=== PATIENT | female | born 1990 | race Caucasian/White ===

== ENCOUNTER 2019-12-07 12:03 | Outpatient (REF) | payer OTHER, SELFPAY | END 2019-12-07 12:04 | disposition home or self-care (01) | LOC: HO.LAB 12:03 | PROVIDERS: PCP Internal Medicine; Visit Provider Internal Medicine | DX: Z20.828 Contact with and (suspected) exposure to other viral communicable diseases (principal) | CPT/HCPCS: 87635 ==

== ENCOUNTER 2020-09-10 08:40 | Outpatient (REF) | payer OTHER, SELFPAY ==
[2020-09-10 09:22] LABS: MANUAL DIFF FLAG NO
[2020-09-10 09:23] LABS: Basophils Percent Auto 0.4 % (0-2); Eosinophils Percent Auto 0.8 % (0-4); Hemoglobin 14.2 g/dl (12.0-16.0); Imm Gran Abs Auto 0.01 X10*3/uL (0.00-0.03); Imm Gran Pct Auto 0.2 % (0.0-0.4); Lymphocytes Absolute Auto 1.9 X10*3/uL (1.2-4.9); Lymphocytes Percent Auto 37.1 % (20-40); Mean Corpuscular Hemoglobin 29.5 pg (27.0-33.0); Mean Corpuscular Volume 89.2 fL (80-98); Mean Platelet Volume 12.3 fL (9.4-12.3); Monocytes Absolute Auto 0.3 X10*3/uL (0.1-1.2); Monocytes Percent Auto 5.6 % (2-11); Neutrophils Absolute Auto 2.9 X10*3/uL (2.0-8.3); Neutrophils Percent Auto 55.9 % (45-73); Platelet Count 193 X10*3/uL (160-400); Red Blood Count 4.82 X10*6/uL (4.20-5.50); Red Cell Distribution Width 13.2 % (11.0-16.0); White Blood Count 5.2 X10*3/uL (4.8-10.8)
[2020-09-10 09:43] LABS: Glucose Urine UA NEG (NEG); Leukocyte Esterase Urine NEG (NEG); Nitrite Urine NEG (NEG); Urine Blood NEG (NEG); Urine Ketones NEG (NEG); Urine Protein NEG (NEG-TRACE)
[2020-09-10 10:01] LABS: Appearance Urine CLEAR; Color Urine YELLOW
[2020-09-10 10:08] LABS: Alanine Aminotransferase 13 U/L (0-31); Albumin Level 4.4 g/dL (3.5-5.0); Alkaline Phosphatase 58 U/L (39-117); Anion Gap 12 (12-20); Aspartate Amino Transferase 19 U/L (5-31); Bilirubin Total 0.8 mg/dL (0.0-1.0); Blood Urea Nitrogen 8 mg/dL (9-16); Calcium 9.6 mg/dL (8.4-10.2); Carbon Dioxide 25 mmol/L (22-29); Chloride 104 mmol/L (96-108); Cholesterol 132 mg/dL; Estimated Glomerular Filt Rate > 60; Glucose Random 94 mg/dL (60-115); HDL Cholesterol 44 mg/dL; LDL Cholesterol Calculated 75 mg/dl; Potassium 4.3 mmol/L (3.3-5.1); Sodium 137 mmol/L (135-145); Total Protein 7.5 g/dL (6.5-8.0); Triglycerides 66 mg/dL
[2020-09-10 10:30] LABS: Free T4 (Free Thyroxine) 1.11 ng/dL (0.71-1.85); Thyroid Stimulating Hormone 1.58 uIU/mL (0.32-4.0); Vitamin D 25-OH Total 45.3 ng/mL (>30)
[2020-09-10 10:38] LABS: Folate 18.8 ng/mL (> or = 4.0); Vitamin B12 573 pg/mL (200-900)
[2020-09-10 11:24] LABS: Bacteria Urine TRACE /LPF; Calcium Phosphate Crystals Ur TRACE /LPF; RBC Urine 0 /HPF (0); Squamous Epithelial Cell Urine TRACE /LPF; WBC Urine 0-2 /HPF (0-4)
[2020-09-10 11:25] LABS: Amorphous Sediment Urine 2+ /LPF
== END 2020-09-10 08:41 | disposition home or self-care (01) ==
LOC: HO.LAB 08:40
PROVIDERS: PCP Internal Medicine; Visit Provider Internal Medicine
DX: L65.9 Nonscarring hair loss, unspecified (principal); R53.83 Other fatigue; E78.00 Pure hypercholesterolemia, unspecified
CPT/HCPCS: 36415; 80053; 80061; 81001; 82306; 82607; 82746; 84439; 84443; 85025

== ENCOUNTER 2022-07-14 12:40 | Emergency (ER) | payer OTHER, SELFPAY ==
[2022-07-14 12:59] VITALS: BP 158/81; PULSE 110; RESP 20; TEMP 36.9; O2SAT 99; BMI 25.1
--- NOTE | 2022-07-14 13:00 | ED.GENADULT ---
HPI - General Adult General Chief complaint: Dizziness Stated complaint: light headed, tingling all over face, high bp, diz Time Seen by Provider: 07/14/22 16:02 Source: patient Mode of arrival: ambulatory History of Present Illness HPI narrative: 31 year female, comes in with lightheadedness associated with tingling all across her forehead as well as located in the left jaw, she denies any dental pain or recent fever, chills, ear ringing but states that she has had your ringing for the past year. Patient denies any other instances of similar symptoms, denies recent travel or leg swelling. Related Data Home Medications Medication Instructions Recorded Confirmed hydroxyzine HCl 10 mg tablet 10 mg PO TID PRN 03/21/20 03/30/22 Previous Rx's Medication Instructions Recorded albuterol sulfate 90 mcg/actuation 2 puff inhalation QID PRN 03/21/20 aerosol inhaler (ProAir HFA) shortness of breath or wheezing #8.5 grams cyclobenzaprine 5 mg tablet 5 mg PO BEDTIME PRN muscle spasm 03/30/22 #7 tabs Allergies Allergy/AdvReac Type Severity Reaction Status Date / Time No Known Allergies Allergy Verified 03/30/22 09:19 Review of Systems Review of Systems: Pertinent positives and negatives as stated in HPI [facility] Past Medical History Source: nursing notes reviewed Medical History Overweight (BMI 25.0-29.9) Vitamin D deficiency Surgical History No pertinent past surgical history Family History Family History Father No problems noted. Mother Myocardial infarct Brother Autism Maternal Aunt Thyroid cancer Paternal Uncle Colon cancer Social History Social History Housing: House Alcohol intake: current Patient Tobacco Use Status: Never used Tobacco Advance Directives: No Advance Directives Information Provided: No service: No Current occupational status: employed Cognitive needs: No Hearing needs: No Vision needs: No Physical Exam ED Vital Signs: Vital Signs - 24 hr 07/14/22 12:59 07/14/22 16:00 07/14/22 16:41 Temperature 98.4 F 98.2 F Pulse Rate 110 H 105 H 92 Respiratory Rate 20 18 Blood Pressure 158/81 H 137/86 128/71 Pulse Oximetry 99 98 Oxygen Delivery Method Room Air Room Air 07/14/22 16:42 07/14/22 16:43 07/14/22 18:33 Temperature 98.2 F Pulse Rate 99 112 H 92 Respiratory Rate 16 Blood Pressure 122/79 140/72 H 123/76 Pulse Oximetry 98 Oxygen Delivery Method Room Air BMI result Body Mass Index 25.1 VITAL SIGNS: Reviewed. GENERAL: Well developed, well nourished, in no acute distress. HEAD: Normocephalic/atraumatic EYES: PERRLA, EOMI EARS: Ext canals without abnormality, TMs non-bulging and non-erythematous NOSE: Nares patent bilateral OROPHARYNX: no oral lesions noted, posterior pharynx clear NECK: Supple, no adenopathy LUNGS: Normal breath sounds. No adventitious sounds or accessory muscle use. SpO2<98> CARDIOVASCULAR: Regular rate and rhythm without noted murmurs ABDOMEN: Soft, non-tender, non-distended with bowel sounds. MUSCULOSKELETAL: No tenderness, deformities, or effusions noted on gross inspection. EXTREMITIES: No cyanosis, clubbing or edema. SKIN: Inspection of the skin reveals no rashes NEUROLOGIC: Alert and oriented x 4. Strength and sensation to light touch were grossly intact x 4. Course Course Course Narrative: This is an RME: Additional HPI, ROS, PE not included below will be deferred to primary provider. This is a 13-wgym[age]sgr-female, with a hx of anxiety, presenting to the emergency department with complaints of lightheadedness, facial numbness, dizziness, and unsteadiness x 1 week. States that the symptoms are intermittent. Has been under stress with wedding planning. No chest pain or shortness of breath. No neuro deficits on examination. Has been without her control over the last week. VSS. Stable to return back to the waiting room until treatment room becomes available. Plan: Labs and EKG ordered Medical Decision Making Medical Decision Making MDM Narrative: 31-year-old female with history and clinical presentation suggestive of initial signs and symptoms of vasovagal, she is noted to be significantly tachycardic both eye on vital sign measurement as well as EKG. She otherwise appears well, nonfocal and on review of all investigations thus far there is no evidence of infection, anemia, electrolyte abnormalities. Will proceed with orthostatics and assessment of urinalysis/U preg and will obtain D-dimer. Orthostatics were positive, D-dimer is negative as well as the urinalysis and hcg is negative. Patient has drank 2 pitchers of water since being here in the emergency room. She is feeling much better and on performance of the orthostatics she denied feeling dizzy on the standing position. She is otherwise hemodynamically stable and will be discharged home with presumptive mild dehydration. Differential Diagnosis Please see the discussion above Lab Data Please see the discussion above 07/14/22 13:32 07/14/22 13:32 Labs: Lab Results 07/14/22 07/14/22 07/14/22 Range/Units 13:32 13:32 16:26 WBC 8.6 (4.8-10.8) X10*3/uL RBC 4.63 (4.20-5.50) X10*6/uL Hgb 13.8 (12.0-16.0) g/dl Hct 41.3 (37.0-47.0) % MCV 89.2 (80.0-98.0) fL MCH 29.8 (27.0-33.0) pg MCHC 33.4 (31.0-35.0) g/dl RDW 12.9 (11.0-16.0) % Plt Count 215 (160-400) X10*3/uL MPV 11.8 (9.4-12.3) fL Immature Gran % (Auto) 0.2 (0.0-0.4) % Neut % (Auto) 73.0 (45-73) % Lymph % (Auto) 21.5 (20-40) % Allen % (Auto) 4.8 (2-11) % Eos % (Auto) 0.2 (0-4) % Baso % (Auto) 0.3 (0-2) % Lymph # (Auto) 1.9 (1.2-4.9) X10*3/uL Allen # (Auto) 0.4 (0.1-1.2) X10*3/uL Eos # (Auto) 0.0 (0.0-0.4) X10*3/uL Baso # (Auto) 0.0 (0.0-0.2) X10*3/uL Abs Immat Gran (auto) 0.02 (0.00-0.03) X10*3/uL Absolute Neuts (auto) 6.3 (2.0-8.3) x10*3/uL Absolute Nucleated RBC 0.000 (0.0-0.012) X10*3/uL Nucleated RBC % (auto) 0.0 (0.0-0.2) /100WBC D-Dimer High Sensitivty NG/ML Sodium 141 (135-145) mmol/L Potassium 3.5 (3.3-5.1) mmol/L Chloride 108 (96-108) mmol/L Carbon Dioxide 25 (22-29) mmol/L Anion Gap 12 (12-20) BUN 8 L (9-16) mg/dL Creatinine 0.69 (0.5-1.4) mg/dL Estim Creat Clear Calc 117.0 Estimated GFR > 60 Random Glucose 109 (60-115) mg/dL Calcium 9.9 (8.4-10.2) mg/dL Magnesium 2.0 (1.6-2.6) mg/dL Total Bilirubin 0.5 (0.0-1.0) mg/dL Direct Bilirubin 0.1 (0.0-0.5) mg/dL AST 17 (5-31) U/L ALT 14 (0-31) U/L Alkaline Phosphatase 51 (39-117) U/L Total Protein 7.4 (6.5-8.0) g/dL Albumin 4.1 (3.5-5.0) g/dL Lipase 23 (8-78) U/L Beta HCG, Quant < 2 mIU/mL Urine Color Yellow Urine Appearance Clear Urine pH 8.0 (5.0-9.0) Ur Specific Thurmond 1.010 (1.005-1.025) Urine Protein Negative (Neg-Trace) mg/dL Urine Glucose (UA) Negative (Negative) mg/dL Urine Ketones Negative (Negative) mg/dL Urine Blood Negative (Negative) Urine Nitrite Negative (Negative) Ur Leukocyte Esterase Negative (Negative) 07/14/22 Range/Units 16:50 WBC (4.8-10.8) X10*3/uL RBC (4.20-5.50) X10*6/uL Hgb (12.0-16.0) g/dl Hct (37.0-47.0) % MCV (80.0-98.0) fL MCH (27.0-33.0) pg MCHC (31.0-35.0) g/dl RDW (11.0-16.0) % Plt Count (160-400) X10*3/uL MPV (9.4-12.3) fL Immature Gran % (Auto) (0.0-0.4) % Neut % (Auto) (45-73) % Lymph % (Auto) (20-40) % Allen % (Auto) (2-11) % Eos % (Auto) (0-4) % Baso % (Auto) (0-2) % Lymph # (Auto) (1.2-4.9) X10*3/uL Allen # (Auto) (0.1-1.2) X10*3/uL Eos # (Auto) (0.0-0.4) X10*3/uL Baso # (Auto) (0.0-0.2) X10*3/uL Abs Immat Gran (auto) (0.00-0.03) X10*3/uL Absolute Neuts (auto) (2.0-8.3) x10*3/uL Absolute Nucleated RBC (0.0-0.012) X10*3/uL Nucleated RBC % (auto) (0.0-0.2) /100WBC D-Dimer High Sensitivty < 150 NG/ML Sodium (135-145) mmol/L Potassium (3.3-5.1) mmol/L Chloride (96-108) mmol/L Carbon Dioxide (22-29) mmol/L Anion Gap (12-20) BUN (9-16) mg/dL Creatinine (0.5-1.4) mg/dL Estim Creat Clear Calc Estimated GFR Random Glucose (60-115) mg/dL Calcium (8.4-10.2) mg/dL Magnesium (1.6-2.6) mg/dL Total Bilirubin (0.0-1.0) mg/dL Direct Bilirubin (0.0-0.5) mg/dL AST (5-31) U/L ALT (0-31) U/L Alkaline Phosphatase (39-117) U/L Total Protein (6.5-8.0) g/dL Albumin (3.5-5.0) g/dL Lipase (8-78) U/L Beta HCG, Quant mIU/mL Urine Color Urine Appearance Urine pH (5.0-9.0) Ur Specific Thurmond (1.005-1.025) Urine Protein (Neg-Trace) mg/dL Urine Glucose (UA) (Negative) mg/dL Urine Ketones (Negative) mg/dL Urine Blood (Negative) Urine Nitrite (Negative) Ur Leukocyte Esterase (Negative) Independent Interpretation I performed an independent interpretation of an: EKG Interpretation: Normal sinus rhythm, HR-97, no STEMI, WA/QRS/QTC is within normal limits. External Record Review External record reviewed: Prior outpatient labs Discharge Plan Discharge Clinical Impression: Lightheaded, Mild dehydration Patient Disposition: Home, Self-Care Instructions: Lightheadedness (ED), Dehydration (ED) Additional Instructions: 1. Resume all home medications as prescribed. 2. Please follow-up with your primary care provider next 1-2 days for re-evaluation further outpatient management. Return to the ER for any worsening symptoms. Prescriptions: No Action hydroxyzine HCl 10 mg tablet 10 mg PO TID PRN albuterol sulfate [ProAir HFA] 90 mcg/actuation HFA aerosol inhaler 2 puff inhalation QID PRN (Reason: shortness of breath or wheezing) Qty: 8.5 0RF cyclobenzaprine 5 mg tablet 5 mg PO BEDTIME PRN (Reason: muscle spasm) Qty: 7 0RF Referrals: Po,Kacy Siu MD [Primary Care Provider] -
--- NOTE | 2022-07-14 13:11 | ECG_ITS ---
Test Reason : DIZZINESS Blood Pressure : / mmHG Vent. Rate : 097 BPM Atrial Rate : 097 BPM P-R Int : 140 ms QRS Dur : 088 ms QT Int : 344 ms P-R-T Axes : 068 064 042 degrees QTc Int : 436 ms Normal sinus rhythm Possible Left atrial enlargement Borderline ECG When compared with ECG of 12-NOV-2019 20:39, Nonspecific T wave abnormality now evident in Inferior leads Referred By: Deepa Mijares Electronically Signed By:LALA WARREN MD
[2022-07-14 13:36] LABS: MANUAL DIFF FLAG NO
[2022-07-14 13:38] LABS: Basophils Percent Auto 0.3 % (0-2); Eosinophils Percent Auto 0.2 % (0-4); Hematocrit 41.3 % (37.0-47.0); Hemoglobin 13.8 g/dl (12.0-16.0); Imm Gran Abs Auto 0.02 X10*3/uL (0.00-0.03); Imm Gran Pct Auto 0.2 % (0.0-0.4); Lymphocytes Absolute Auto 1.9 X10*3/uL (1.2-4.9); Lymphocytes Percent Auto 21.5 % (20-40); Mean Corpuscular HGB Conc 33.4 g/dl (31.0-35.0); Mean Corpuscular Hemoglobin 29.8 pg (27.0-33.0); Mean Corpuscular Volume 89.2 fL (80.0-98.0); Mean Platelet Volume 11.8 fL (9.4-12.3); Monocytes Absolute Auto 0.4 X10*3/uL (0.1-1.2); Monocytes Percent Auto 4.8 % (2-11); Neutrophils Absolute Auto 6.3 x10*3/uL (2.0-8.3); Platelet Count 215 X10*3/uL (160-400); Red Blood Count 4.63 X10*6/uL (4.20-5.50); Red Cell Distribution Width 12.9 % (11.0-16.0); White Blood Count 8.6 X10*3/uL (4.8-10.8)
[2022-07-14 13:55] LABS: Alanine Aminotransferase 14 U/L (0-31); Albumin Level 4.1 g/dL (3.5-5.0); Alkaline Phosphatase 51 U/L (39-117); Anion Gap 12 (12-20); Aspartate Amino Transferase 17 U/L (5-31); Bilirubin Direct 0.1 mg/dL (0.0-0.5); Bilirubin Total 0.5 mg/dL (0.0-1.0); Blood Urea Nitrogen 8 mg/dL (9-16); Calcium 9.9 mg/dL (8.4-10.2); Carbon Dioxide 25 mmol/L (22-29); Chloride 108 mmol/L (96-108); Estimated Glomerular Filt Rate > 60; Glucose Random 109 mg/dL (60-115); Lipase 23 U/L (8-78); Potassium 3.5 mmol/L (3.3-5.1); Sodium 141 mmol/L (135-145); Total Protein 7.4 g/dL (6.5-8.0)
[2022-07-14 15:46] LABS: HCG Quantitative < 2 mIU/mL
[2022-07-14 16:00] VITALS: BP 137/86; PULSE 105; RESP 18; TEMP 36.8; O2SAT 98
[2022-07-14 16:41] VITALS: BP 128/71; PULSE 92
[2022-07-14 16:42] VITALS: BP 122/79; PULSE 99
[2022-07-14 16:43] VITALS: BP 140/72; PULSE 112
[2022-07-14 16:47] LABS: Appearance Urine Clear; Color Urine Yellow; Glucose Urine UA Negative (Negative); Leukocyte Esterase Urine Negative (Negative); Nitrite Urine Negative (Negative); Urine Blood Negative (Negative); Urine Ketones Negative (Negative); Urine Protein Negative (Neg-Trace)
--- NOTE | 2022-07-14 16:51 | MHC.EDTECH ---
pt orthodontics vitals taken and d dimer drawn and sent to lab .
[2022-07-14 17:43] LABS: D Dimer High Sensitivity < 150 NG/ML
[2022-07-14 18:33] VITALS: BP 123/76; PULSE 92; RESP 16; TEMP 36.8; O2SAT 98
--- NOTE | 2022-07-14 18:35 | MHC.EDTECH ---
1800 ROUNDING DONE ,VITALS SIGN TAKEN ,PT DRANK 2 PITCHER WATER .
== END 2022-07-14 19:05 | disposition home or self-care (01) ==
PROVIDERS: Physician Assistant Medical; Emergency Provider Student in an Organized Health Care Education/Training Program; PCP Internal Medicine
DX: R42 Dizziness and giddiness (principal); E86.0 Dehydration; R20.0 Anesthesia of skin; Z79.899 Other long term (current) drug therapy
CPT/HCPCS: 36415; 80048; 80076; 81003; 83690; 83735; 84702; 85025; 85379; 93005; 99283; 99284

== ENCOUNTER 2022-11-23 11:51 | Outpatient (REF) | payer OTHER, SELFPAY | END 2022-11-23 11:52 | disposition home or self-care (01) | LOC: HO.LAB 11:51 | PROVIDERS: PCP Internal Medicine; Visit Provider Internal Medicine | DX: R30.0 Dysuria (principal); R10.9 Unspecified abdominal pain | CPT/HCPCS: 81003 ==

== ENCOUNTER 2023-02-10 11:00 | Outpatient (REF) | payer OTHER, SELFPAY ==
[2023-02-10 12:37] LABS: Appearance Urine Cloudy; Color Urine Yellow; Glucose Urine UA Negative (Negative); Leukocyte Esterase Urine Moderate (2+) (Negative); Nitrite Urine Negative (Negative); Specific Gravity - Urine 1.025 (1.005-1.025); UMIC TRIGGER UACC YES; Urine Blood Large (3+) (Negative); Urine Ketones Negative (Negative); Urine Protein 100 (2+) mg/dL (Neg-Trace)
[2023-02-10 12:40] LABS: Bacteria Urine 4+ (None Seen); Hyaline Casts Urine 0-2 /LPF (0-2); RBC Urine >20 /HPF (0-2); UACC Culture Trigger YES; WBC Urine >50 /HPF (0-5)
== END 2023-02-10 11:01 | disposition home or self-care (01) ==
LOC: HO.LAB 11:00
PROVIDERS: PCP Internal Medicine; Visit Provider Internal Medicine
DX: R39.9 Unspecified symptoms and signs involving the genitourinary system (principal)
CPT/HCPCS: 81001; 87086; 87088; 87186

== ENCOUNTER 2023-04-07 09:26 | Outpatient (AMB) | payer OTHER, SELFPAY ==
[2023-04-07 09:28] VITALS: BP 110/72; PULSE 89; O2SAT 100; BMI 27.5
--- NOTE | 2023-04-07 09:28 | MHC.PC.OV ---
Vital Signs 04/07/23 09:28 Height 5 ft 8 in Weight 181 lb BMI 27.5 BP 110/72 Blood Pressure Location Lt brachial Position Sitting Pulse 89 Pulse Source Pulse Oximeter Pulse Oximetry (%) 100 Oxygen Delivery Method Room Air Intake Visit Reasons: Right hand/elbow/shoulder Intake Note: pt states right shoulder, hand and elbow pain X1 week Technical Lead Required: No Allergies No Known Allergies Allergy (Verified 04/07/23 09:30) Tobacco use date assessed: 04/07/23 HPI Right hand/elbow/shoulder HPI Details 32-year-old overweight female with a history of generalized anxiety disorder coming in for an acute problem. Noted UTI in January. 2 weeks R hand numbness PFSH Medical History Overweight (BMI 25.0-29.9) Vitamin D deficiency Surgical History No pertinent past surgical history Family History (Updated 07/28/22 @ 10:26 by Merissa Crandall [facility]) Father No problems noted. Mother Myocardial infarct Brother Autism Maternal Aunt Thyroid cancer Paternal Uncle Colon cancer Social History (Updated 07/28/22 @ 10:57 by Kacy Hansen MD) Housing: House Alcohol intake: current Patient Tobacco Use Status: Never used Tobacco e-Cigarette/Vaping Use: Never Used Second Hand Smoke Exposure: No service: No Current occupational status: employed Cognitive needs: Yes Hearing needs: No Vision needs: No Questionnaire Thrive Questionnaire Date Thrive assessed: 04/07/23 AUDIT C Alcohol Use Questionnaire (AUDIT-C) 1. How often do you have a drink containing alcohol?: Monthly or less 2. How many drinks containing alcohol do you have on a typical day when you are drinking?: 1 or 2 3. How often do you have six or more drinks on one occasion?: Never Total Score: 1 Score Reviewed/Action Taken: No ODIN-7 AMB Questionnaire ODIN-7 Date ODIN - 7 assessed: 04/07/23 Source: Developed by Drs. Kashif Rao, Mandy Akins, Tyron Ludwig and colleagues, with an educational jevon from [employer]. Physical exam (Primary Care) Vital Signs: Last Vital Signs Pulse 89 04/07/23 09:28 BP 110/72 04/07/23 09:28 Pulse Ox 100 04/07/23 09:28 Oxygen Delivery Method Room Air 04/07/23 09:28 BMI result Body Mass Index 27.5 Tobacco/Smoking Status: Tobacco use Status Tobacco use date assessed 04/07/23 04/07/23 09:30 Patient Tobacco Use Status Never used Tobacco 04/07/23 09:30 e-Cigarette/Vaping Use Never Used 04/07/23 09:30 Thrive Assessment: Date of Thrive Assessment Date Thrive assessed 04/07/23 04/07/23 09:30 Const General: alert; No acute distress Eyes Conjunctivae: conjunctivae normal Resp Auscultation: clear to auscultation bilaterally Cardio Rate: regular rate Rhythm: regular rhythm GI Inspection: Yes normal to inspection Neuro Other: Right hand numbness pulses normal range of motion normal no swelling no redness. Assessment and Plan Assessment & Plan (1) Numbness of right hand: Code(s): R20.0 - Anesthesia of skin Plan: Wrist brace given to wear at nighttime every night and discussed about the nerve patterns of the hand and the most common problem of carpal tunnel syndrome. Advised to monitor in the next month or so if it has not getting any better to call and we will institute nerve conduction test and an EMG. Coding Level of Care Code Est Pt Level 3 (65130) Diagnoses Numbness of right hand R20.0
== END 2023-04-07 10:09 | disposition home or self-care (01) ==
PROVIDERS: PCP Internal Medicine; Visit Provider Internal Medicine
DX: R20.0 Anesthesia of skin (principal)
CPT/HCPCS: 99213

== ENCOUNTER 2023-06-09 14:59 | Outpatient (AMB) | payer OTHER, SELFPAY ==
[2023-06-09 15:02] VITALS: BP 110/86; PULSE 119; O2SAT 98; BMI 27.8
--- NOTE | 2023-06-09 15:02 | A.OFFPC_ITS ---
Vital Signs 06/09/23 15:02 Height 5 ft 8 in Weight 183 lb BMI 27.8 BP 110/86 Blood Pressure Location Lt brachial Position Sitting Pulse 119 H Pulse Source Pulse Oximeter Pulse Oximetry (%) 98 Oxygen Delivery Method Room Air Intake Visit Reasons: Arm Numbness Radiation Oncology Manager Required: No Allergies No Known Allergies Allergy (Verified 06/09/23 15:03) Tobacco use date assessed: 06/09/23 HPI Arm Numbness HPI Details Noted with tachycardia and patient just drank coffee 32-year-old overweight female with a history of generalized anxiety disorder coming in for follow-up. March last seen having right hand numbness. Patient also complains of leg cramps both sides has been well hydrated. Will work this up. Patient has been wearing the wrist splints but notes still having numbness of the fingers. [facility] Medical History Overweight (BMI 25.0-29.9) Vitamin D deficiency Surgical History No pertinent past surgical history Family History (Updated 07/28/22 @ 10:26 by Merissa Crandall CMA) Father No problems noted. Mother Myocardial infarct Brother Autism Maternal Aunt Thyroid cancer Paternal Uncle Colon cancer Social History (Updated 07/28/22 @ 10:57 by Kacy Hansen MD) Housing: House Alcohol intake: current Patient Tobacco Use Status: Never used Tobacco e-Cigarette/Vaping Use: Never Used Second Hand Smoke Exposure: No service: No Current occupational status: employed Cognitive needs: Yes Hearing needs: No Vision needs: No Questionnaire Thrive Questionnaire Date Thrive assessed: 04/07/23 AUDIT C Alcohol Use Questionnaire (AUDIT-C) 1. How often do you have a drink containing alcohol?: Monthly or less 2. How many drinks containing alcohol do you have on a typical day when you are drinking?: 1 or 2 3. How often do you have six or more drinks on one occasion?: Never Total Score: 1 Score Reviewed/Action Taken: No ODIN-7 AMB Questionnaire ODIN-7 Date ODIN - 7 assessed: 06/09/23 Feeling nervous, anxious, or on edge: 0 = Not at all Not being able to stop or control worryin = Not at all Worrying too much about different things: 0 = Not at all Trouble relaxin = Not at all Being so restless that it is hard to sit still: 0 = Not at all Becoming easily annoyed or irritable: 0 = Not at all Feeling afraid as if something awful might happen: 0 = Not at all Total ODIN-7 score (0-4 normal; 5-9 mild; 10-14 moderate; 15-21 severe): 0 Source: Developed by Drs. Kashif Rao, Mandy Akins, Tyron Ludwig and colleagues, with an educational jevon from [employer]. ODIN-7 Assessment Billing ODIN-7 Assessment Tool: ODIN-7 Assessment 94793 Physical exam (Primary Care) Vital Signs: Last Vital Signs Pulse 119 H 06/09/23 15:02 BP 110/86 06/09/23 15:02 Pulse Ox 98 06/09/23 15:02 Oxygen Delivery Method Room Air 06/09/23 15:02 BMI result Body Mass Index 27.8 Tobacco/Smoking Status: Tobacco use Status Tobacco use date assessed 06/09/23 06/09/23 15:04 Patient Tobacco Use Status Never used Tobacco 06/09/23 15:04 e-Cigarette/Vaping Use Never Used 06/09/23 15:04 Thrive Assessment: Date of Thrive Assessment Date Thrive assessed 04/07/23 06/09/23 15:04 Const General: alert; No acute distress Eyes Conjunctivae: conjunctivae normal Resp Auscultation: clear to auscultation bilaterally Cardio Rate: regular rate Rhythm: regular rhythm GI Inspection: Yes normal to inspection Extrem General: Yes normal to inspection and No edema Assessment and Plan Assessment & Plan (1) Numbness of right hand: Code(s): R20.0 - Anesthesia of skin Plan: Will request for nerve conduction test (2) Overweight (BMI 25.0-29.9): Code(s): E66.3 - Overweight Plan: Diet and exercise (3) Exercise induced bronchospasm: Code(s): J45.990 - Exercise induced bronchospasm Plan: Patient on ProAir to use as needed (4) Leg cramps: Code(s): R25.2 - Cramp and spasm Plan: Patient is advised to work this up with blood work Orders: Orders NE electromyogram (EMG) Today R20.0 - Anesthesia of skin NE nerve conduction velocity Today R20.0 - Anesthesia of skin Comprehensive Met. Panel Today R25.2 - Cramp and spasm Free T4 (Free Thyroxine) Today R25.2 - Cramp and spasm Magnesium Today R25.2 - Cramp and spasm Phosphorus Today R25.2 - Cramp and spasm Complete Blood Count Auto Diff Today R25.2 - Cramp and spasm Thyroid Stimulating Hormone Today R25.2 - Cramp and spasm UA CC w/rflx Micro + Cult Today R25.2 - Cramp and spasm, R30.0 - Dysuria Ferritin Today R25.2 - Cramp and spasm Coding Level of Care Code Est Pt Level 4 (85463) Diagnoses Numbness of right hand R20.0 Overweight (BMI 25.0-29.9) E66.3 Exercise induced bronchospasm J45.990 Leg cramps R25.2 Additional Codes ODIN-7 Assessment Billing - ODIN-7 Assessment Tool: ODIN-7 Assessment [id number] ([id number])
== END 2023-06-09 15:44 | disposition home or self-care (01) ==
PROVIDERS: PCP Internal Medicine; Visit Provider Internal Medicine
DX: R20.0 Anesthesia of skin (principal); E66.3 Overweight; J45.990 Exercise induced bronchospasm; R25.2 Cramp and spasm
CPT/HCPCS: 99214

== ENCOUNTER 2023-06-10 08:16 | Outpatient (REF) | payer OTHER, SELFPAY ==
[2023-06-10 08:41] LABS: MANUAL DIFF FLAG NO
[2023-06-10 08:57] LABS: Basophils Percent Auto 0.5 % (0-2); Eosinophils Absolute Auto 0.1 X10*3/uL (0.0-0.4); Hematocrit 38.9 % (37.0-47.0); Hemoglobin 13.2 g/dl (12.0-16.0); Imm Gran Abs Auto 0.01 X10*3/uL (0.00-0.03); Imm Gran Pct Auto 0.2 % (0.0-0.4); Lymphocytes Absolute Auto 2.2 X10*3/uL (1.2-4.9); Lymphocytes Percent Auto 38.3 % (20-40); Mean Corpuscular HGB Conc 33.9 g/dl (31.0-35.0); Mean Corpuscular Hemoglobin 29.7 pg (27.0-33.0); Mean Corpuscular Volume 87.4 fL (80.0-98.0); Mean Platelet Volume 11.7 fL (9.4-12.3); Monocytes Absolute Auto 0.3 X10*3/uL (0.1-1.2); Monocytes Percent Auto 5.5 % (2-11); Neutrophils Absolute Auto 3.1 x10*3/uL (2.0-8.3); Neutrophils Percent Auto 54.5 % (45-73); Platelet Count 211 X10*3/uL (160-400); Red Blood Count 4.45 X10*6/uL (4.20-5.50); Red Cell Distribution Width 13.3 % (11.0-16.0); White Blood Count 5.8 X10*3/uL (4.8-10.8)
[2023-06-10 09:31] LABS: Alanine Aminotransferase 13 U/L (0-31); Alkaline Phosphatase 46 U/L (39-117); Anion Gap 13 (12-20); Aspartate Amino Transferase 15 U/L (5-31); Bilirubin Total 0.3 mg/dL (0.0-1.0); Blood Urea Nitrogen 9 mg/dL (9-16); Calcium 9.1 mg/dL (8.4-10.2); Carbon Dioxide 22 mmol/L (22-29); Chloride 107 mmol/L (96-108); Estimated Glomerular Filt Rate > 60; Glucose Random 118 mg/dL (60-115); Sodium 138 mmol/L (135-145); Total Protein 7.5 g/dL (6.5-8.0)
[2023-06-10 09:49] LABS: Ferritin 40 ng/mL (10-122); Free T4 (Free Thyroxine) 0.88 ng/dL (0.71-1.85); Thyroid Stimulating Hormone 2.04 uIU/mL (0.32-4.0)
[2023-06-10 10:20] LABS: Appearance Urine Clear; Color Urine Yellow; Glucose Urine UA Negative (Negative); Leukocyte Esterase Urine Trace (Negative); Nitrite Urine Negative (Negative); UMIC TRIGGER UACC YES; Urine Blood Negative (Negative); Urine Ketones Negative (Negative); Urine Protein Negative (Neg-Trace)
[2023-06-10 10:23] LABS: Bacteria Urine None Seen (None Seen); Hyaline Casts Urine 0-2 /LPF (0-2); RBC Urine 0-2 /HPF (0-2); WBC Urine 0-5 /HPF (0-5)
== END 2023-06-10 08:17 | disposition home or self-care (01) ==
LOC: HO.LAB 08:16
PROVIDERS: PCP Internal Medicine; Visit Provider Internal Medicine
DX: R25.2 Cramp and spasm (principal)
CPT/HCPCS: 36415; 80053; 81001; 81003; 82728; 83735; 84100; 84439; 84443; 85025

== ENCOUNTER 2023-06-28 09:44 | Outpatient (REF) | payer OTHER, SELFPAY ==
--- NOTE | 2023-06-28 09:47 | EMG_ITS ---
Right median and ulnar motor and sensory studies were performed. Right radial and median and lateral antecubital brachial sensory studies were performed and paraspinal muscles were tested with a needle. IMPRESSION: 1. [id number]-mo-[id number] right median neuropathy across carpal tunnel. 2. Right Vladislav Chad anastomosis, a normal variant. MD JUAN M Foreman/MAXINE / [id number]
== END 2023-06-28 09:45 | disposition home or self-care (01) ==
LOC: HO.NEURO 09:44
PROVIDERS: PCP Internal Medicine; Visit Provider Internal Medicine
DX: R20.0 Anesthesia of skin (principal)
CPT/HCPCS: 95886; 95910

== ENCOUNTER 2023-08-10 11:13 | Outpatient (AMB) | payer OTHER, SELFPAY ==
[2023-08-10 11:25] VITALS: BP 124/68; PULSE 92; O2SAT 99; BMI 28.9
--- NOTE | 2023-08-10 11:25 | A.OFFPC_ITS ---
Vital Signs 08/10/23 11:25 Height 5 ft 8 in Weight 190 lb BMI 28.9 BP 124/68 Blood Pressure Location Lt brachial Position Sitting Pulse 92 Pulse Source Pulse Oximeter Pulse Oximetry (%) 99 Oxygen Delivery Method Room Air Intake Visit Reasons: pe Allergies No Known Allergies Allergy (Verified 08/10/23 11:26) Medication List - Last Reconciled 08/10/23 by Kacy Hansen MD albuterol sulfate 90 mcg/actuation (ProAir HFA) 2 puffs inhalation QID PRN cholecalciferol (vitamin D3) 125 mcg PO DAILY drospirenone-ethinyl estradiol 3-0.03 mg (Alpa) 1 tab PO DAILY magnesium 250 mg PO DAILY multivitamin 1 tab PO DAILY Tobacco use date assessed: 06/09/23 Dental Screening Dental Screen Date: 08/10/23 Did you have a dental visit in the last 12 months?: Yes Did you have a dental problem in the last 6 months where you did not have access to dental care?: No Was dental information given to patient?: Patient has dentist HPI pe HPI Details 32-year-old overweight female with exerc ise-induced bronchospasm and has complained of right hand numbness coming in for physical exam last seen in 05/2023 patient comes in for physical exam. Patient had a nerve conduction test showing right median mild to moderate carpal tunnel syndrome. [facility] Medical History Overweight (BMI 25.0-29.9) Vitamin D deficiency Surgical History No pertinent past surgical history Family History (Updated 07/28/22 @ 10:26 by Merissa Crandall [facility]) Father No problems noted. Mother Myocardial infarct Brother Autism Maternal Aunt Thyroid cancer Paternal Uncle Colon cancer Social History (Updated 08/10/23 @ 12:09 by Kacy Hansen MD) Housing: House Alcohol intake: current Comment: once a week 1 drink Patient Tobacco Use Status: Never used Tobacco e-Cigarette/Vaping Use: Never Used Second Hand Smoke Exposure: No service: No Current occupational status: employed Cognitive needs: Yes Hearing needs: No Vision needs: No Questionnaire PHQ-9 Over the last 2 weeks, how often have you been bothered by any of the following problems? 1. Little interest or pleasure in doing things: not at all 2. Feeling down, depressed, or hopeless: several days 3. Trouble falling or staying asleep, or sleeping too much: not at all 4. Feeling tired or having little energy: more than half the days 5. Poor appetite or overeating: not at all 6. Feeling bad about yourself - or that you are a failure or have let yourself or your family down: not at all 7. Trouble concentrating on things, such as reading the newspaper or watching television: more than half the days 8. Moving or speaking so slowly that other people could have noticed. Or the opposite - being so fidgety or restless that you have been moving around a lot more than usual: not at all 9. Thoughts that you would be better off or of hurting yourself in some way: not at all Total score: 5 Depression Screening Interpretation: Negative Depression Screening Done: Yes 54266 - PHQ-9 Billing: Yes Source: Developed by Drs. Kashif Rao, Mandy Akins, Tyron Ludwig and colleagues, with an educational jevon from [email or web address]. Thrive Questionnaire Date Thrive assessed: 04/07/23 AUDIT C Alcohol Use Questionnaire (AUDIT-C) 1. How often do you have a drink containing alcohol?: Monthly or less 2. How many drinks containing alcohol do you have on a typical day when you are drinking?: 1 or 2 3. How often do you have six or more drinks on one occasion?: Never Total Score: 1 Score Reviewed/Action Taken: No ODIN-7 AMB Questionnaire ODIN-7 Date ODIN - 7 assessed: 08/10/23 Feeling nervous, anxious, or on edge: 1 = Several days Not being able to stop or control worryin = Not at all Worrying too much about different things: 1 = Several days Trouble relaxin = Not at all Being so restless that it is hard to sit still: 0 = Not at all Becoming easily annoyed or irritable: 0 = Not at all Feeling afraid as if something awful might happen: 1 = Several days Total ODIN-7 score (0-4 normal; 5-9 mild; 10-14 moderate; 15-21 severe): 3 Source: Developed by Mandy NewsomeW. Tashi, Tyron Ludwig and colleagues, with an educational jevon from [email or web address]. ODIN-7 Assessment Billing ODIN-7 Assessment Tool: ODIN-7 Assessment 63852 Review of Systems Const Denies poor appetite and Denies weakness Eyes Denies no additional complaints ENT Reports Normal hearing present, Denies dizziness, Denies nasal congestion, Denies tinnitus and Denies sore throat Card Denies chest pain, Denies syncope, Denies rapid heart rate and Denies dyspnea Resp Denies cough and Denies dyspnea GI Denies change in stool character, Reports constipation, Denies diarrhea, Denies nausea and Denies vomiting Denies urinary frequency, Denies difficulty voiding and Denies dysuria Neuro Reports Normal hearing present, Denies confusion, Denies dizziness, Denies syncope and Denies weakness Psych Denies confusion Physical exam (Primary Care) Vital Signs: Last Vital Signs Pulse 92 08/10/23 11:25 BP 124/68 08/10/23 11:25 Pulse Ox 99 08/10/23 11:25 Oxygen Delivery Method Room Air 08/10/23 11:25 BMI result Body Mass Index 28.9 Tobacco/Smoking Status: Tobacco use Status Tobacco use date assessed 06/09/23 08/10/23 11:32 Patient Tobacco Use Status Never used Tobacco 08/10/23 11:32 e-Cigarette/Vaping Use Never Used 08/10/23 11:32 PHQ-9: PHQ-9 Score PHQ-9: Total score 5 08/10/23 11:37 Depression Screening Interpretation: Negative Thrive Assessment: Date of Thrive Assessment Date Thrive assessed 04/07/23 08/10/23 11:32 Const General: No confusion Orientation/consciousness: No confusion Neuro General: No confusion Cranial nerves: Yes Normal hearing present Assessment and Plan Assessment & Plan (1) Annual physical exam: Code(s): Z00.00 - Encounter for general adult medical examination without abnormal findings Plan: Patient is advised to eat healthy, keep well hydrated, keep active and have adequate sleep. (2) Overweight (BMI 25.0-29.9): Code(s): E66.3 - Overweight Plan: Diet and exercise (3) Exercise induced bronchospasm: Code(s): J45.990 - Exercise induced bronchospasm Plan: Continue with albuterol as needed (4) Right carpal tunnel syndrome: Comment: June [id number] right median neuropathy across carpal tunnel. 2. Right Vladislav Chad anastomosis, a normal variant. Code(s): G56.01 - Carpal tunnel syndrome, right upper limb Plan: Discussed about management. Conservative management presently and discussed about further management if persisting. (5) Impaired fasting glucose: Code(s): R73.01 - Impaired fasting glucose Plan: Decrease the amount of carbohydrate intake, pasta, bread, rice and potatoes are all sugar and that is aside from all the sweet stuff, remember that fruits are good but they are Sweet also. Orders: Orders Hemoglobin A1c 3 Months R73.01 - Impaired fasting glucose Comprehensive Met. Panel 3 Months R73.01 - Impaired fasting glucose Lipid Panel 3 Months E78.00 - Pure hypercholesterolemia, unspecified, R73.01 - Impaired fasting glucose Coding Level of Care Code Est Pt Prev Care 18-39y(19005) Diagnoses Annual physical exam Z00.00 Overweight (BMI 25.0-29.9) E66.3 Exercise induced bronchospasm J45.990 Right carpal tunnel syndrome G56.01 Impaired fasting glucose R73.01 Additional Codes ODIN-7 Assessment Billing - ODIN-7 Assessment Tool: ODIN-7 Assessment [id number] ([id number])
== END 2023-08-10 12:24 | disposition home or self-care (01) ==
PROVIDERS: PCP Internal Medicine; Visit Provider Internal Medicine
DX: Z00.00 Encounter for general adult medical examination without abnormal findings (principal); E66.3 Overweight; J45.990 Exercise induced bronchospasm; G56.01 Carpal tunnel syndrome, right upper limb; R73.01 Impaired fasting glucose
CPT/HCPCS: 99395

== ENCOUNTER 2023-12-23 09:25 | Outpatient (REF) | payer OTHER, SELFPAY ==
[2023-12-23 10:50] LABS: Appearance Urine Clear; Color Urine Yellow; Glucose Urine UA Negative (Negative); Leukocyte Esterase Urine Trace (Negative); Nitrite Urine Negative (Negative); PH 7.5 (5.0-9.0); Specific Gravity - Urine 1.015 (1.005-1.025); UMIC TRIGGER UACC YES; Urine Blood Negative (Negative); Urine Ketones Negative (Negative); Urine Protein Negative (Neg-Trace)
[2023-12-23 10:55] LABS: Bacteria Urine None Seen (None Seen); Hyaline Casts Urine 0-2 /LPF (0-2); RBC Urine 0-2 /HPF (0-2); WBC Urine 0-5 /HPF (0-5)
[2023-12-23 11:33] LABS: Estimated Average Glucose 117 mg/dL; Hemoglobin A1C 140.7666 umol/L; Hemoglobin A1c % 5.7 % (<6.0)
[2023-12-23 11:50] LABS: Alanine Aminotransferase 13 U/L (0-31); Alkaline Phosphatase 50 U/L (39-117); Anion Gap 10 (12-20); Aspartate Amino Transferase 19 U/L (5-31); Bilirubin Total 0.4 mg/dL (0.0-1.0); Blood Urea Nitrogen 10 mg/dL (9-16); Calcium 9.3 mg/dL (8.4-10.2); Carbon Dioxide 23 mmol/L (22-29); Chloride 108 mmol/L (96-108); Cholesterol 129 mg/dL (<200); Estimated Glomerular Filt Rate > 60; Glucose Random 99 mg/dL (60-115); HDL Cholesterol 52 mg/dL (>40); LDL Cholesterol Calculated 37 mg/dL (<100); Sodium 137 mmol/L (135-145); Total Protein 7.6 g/dL (6.5-8.0); Triglycerides 203 mg/dL (<150)
== END 2023-12-23 09:26 | disposition home or self-care (01) ==
LOC: HO.LAB 09:25
PROVIDERS: PCP Internal Medicine; Visit Provider Internal Medicine
DX: R73.01 Impaired fasting glucose (principal); E78.00 Pure hypercholesterolemia, unspecified
CPT/HCPCS: 36415; 80053; 80061; 81001; 83036

== ENCOUNTER 2024-05-18 09:17 | Outpatient (REF) | payer OTHER, SELFPAY ==
[2024-05-18 09:31] LABS: MANUAL DIFF FLAG NO
--- OUTSIDE RECORDS SUMMARY | 2024-05-18 10:02 | XMS_ITS | Encounter Summary ---
Author Organization [facility] Address [address] [place] [address] Care Team Providers Care Cutter Woodwind Reeds Name Role Phone Taylor Becerra MD Primary Care Prov ider Reason for Visit * Reason Comments E-prescribe Rx Request Encounter Details Date Type Department Care Team Description 10/31/2023 Refill OBGYN - [address] [address] [facility] [address] [place] [address] E-prescribe Rx Request Social History Tobacco Use Types Packs/Day Years Used Date Smoking Tobacco: Never Smokeless Tobacco: Never Alcohol Use Standard Drinks/Week Comments Yes 1 (1 standard drink = 0.6 oz pur e alcohol) Socially Alcohol Habits Answer Date Recorded How often do you have a drink containing alcohol ? Monthly or less 01/24/2019 How many drinks containing a lcohol do you have on a typical day when you are drinking? 1 or 2 12/20/2018 How often do you have six or more drinks on one occasion? Not asked Sex Assigned at Date Recorded Not on file documented as of this encounter Miscellaneous Notes * Telephone Encounter - Fam Voss - 10/31/2023 12:45 PM EDT WHEN WAS THE PATIENTS LAST ANNUAL ORGANIZATIONAL EFFECTIVENESS DIRECTOR EXAM?09/05/23 Does patient have an upcoming appointment? No (THE MEDICATION REQUESTED IS ON THE MED LIST ABOVE) Did you check the Pharmacy information above?: YES Indicate how soon the patient needs the script: BY THE END OF THE DAY Patient would like script to be: E-PRESCRIBED/FAXED TO PHARMACY Is the doctor here today?: YES Can the message wait until the doctor returns?: YES Has the patient been told that the prescription will not be filled until the end of the day? YES Payor: GORDO / Plan: PPO $0 KISHAN [id number] / Product Type: PPO [id number] documented in this encounter Plan of Treatment Not on file documented as of this encounter Visit Diagnoses Not on filedocumented in this encounter Care Teams Cutter Woodwind Reeds Relationship Specialty Start Date End Date Taylor Becerra MD [address] [place] [id number] PCP - General Internal Medicine 01/20/22 documented as of this encounter
--- OUTSIDE RECORDS SUMMARY | 2024-05-18 10:02 | XMS_ITS | Encounter Summary ---
Author Organization [facility] Address [address] [place] [address] Care Team Providers Care Safety Specialist Name Role Phone Cecelia Patel MD Primary Care Provider U reeailTaylor Elizabeth MD Primary Care Prov ider Encounter Details Date Type Department Care Team Description 12/20/2017 Orders Only Adult Medicine - [address] [address] Cecelia Patel MD Vitamin D deficiency (Primary Dx) Social History Tobacco Use Types Packs/Day Years [...] on file documented as of this encounter Plan of Treatment Scheduled Orders Name Type Priority Associated Diagnoses Orde r Schedule 25 HYDROXY INCLUDES FRACTIONS IF PERFORMED Lab Routine Vitamin D deficiency Expected: 02/21/2018, Expires: 12/20/2018 documented as of this encounter Visit Diagnoses Diagnosis Vitamin D deficiency- Primary Unspecified vitamin D deficiency documented in this encounter Care Teams Safety Specialist Relationship Specialty Start Date End Date Cecelia Patel MD PCP - General Internal Medicine 09/13/1601/19 Taylor Becerra MD [address] [place] [phone] PCP - General Internal Medicine 01/20/22 documented as of this encounter
--- OUTSIDE RECORDS SUMMARY | 2024-05-18 10:02 | XMS_ITS | Clinical Summary ---
Author Organization [facility] Address [address] [place] [address] Care Team Providers Care Supply Chain Technician Name Role Phone Taylor Becerra MD Primary Care Prov ider Allergies No known active allergies Medications Medication Sig Dispensed Refills Start Date End Date Status hydrOXYzine (ATARAX) 10 MG tablet Take 1 Tab by mouth 3 times daily as needed for Itching for up to 10 days. 30 tablet 0 01/14/2020 Active spironolactone (ALDACTONE) 50 MG tablet Take 1 Tablet by mouth daily. 0 Active drospirenone-ethinyl estradiol (DENNIS) 3-0.03 MG per tablet Take 1 Tablet by mouth daily. 84 Tablet 3 09/05/2023 Active Active Problems Problem Noted Date Vitamin D deficiency 11/12/2016 Acne 11/12/2016 Anxiety 11/12/2016 Immunizations Name Administration Dates Next Due Tdap 02/11/2012 Family History Medical History Relation Name Comments Autism Brother Lanny Arthritis Father Hypertension, Glaucoma, Anemia Mother Hypertension Paternal Grandmother diabete s Relation Name Status Comments Brother Lanny Alive Father Mother Paternal Grandmother Social History Tobacco Use Types Packs/Day Years [...] Assigned at Date Recorded Not on file Last Filed Vital Signs Vital Sign Reading Time Taken Comments Blood Pressure 117/84 09/05/2023 3:03 PM EDT Pulse 86 09/05/2023 3:03 PM EDT Temperature - - Respiratory Rate 16 09/05/2023 3:03 PM EDT Oxygen Saturation - - Inhaled Oxygen Concentration - - Weight 84.6 kg (186 lb 8 oz) 09/05/2023 3:03 PM EDT Height 160 cm (5' 3 ) 09/05/2023 3:03 PM EDT Body Mass Index 33.04 09/05/2023 3:03 PM EDT Plan of Treatment Health Maintenance Due Date Last Done Comments Covid-19 Vaccine (#1) 06/07/1989 DTAP/TDAP/TD (2 - Td or Tdap) 02/10/2022 02/11/2012 CHOLESTEROL SCREENING 12/19/2022 12/19/2017 BASELINE HEALTH EXAM 18-39 12/21/202312/20, 12/20/2018, 12/19/2017, Additional history exists BMI CHECK/ADVISE 02/15/2024 09/05/2023, , 06/17/2022, Additional history exists INFLUENZA (Season Ended) 2024 019 (Refused), 12/19/2017 (Refused) CERVICAL CANCER SCREENING 06/17/2025 06/17/2022, 12/2018 PNEUMOCOCCAL VACCINE FOR HIG H RISK PATIENTS (#1) 2053 Care Teams Supply Chain Technician Relationship Specialty Start Date End Date Taylor Becerra MD [address] [place] [phone] PCP - General Internal Medicine 01/20/22
--- OUTSIDE RECORDS SUMMARY | 2024-05-18 10:03 | XMS_ITS | Encounter Summary ---
Author Organization [facility] Address [address] [place] [address] Care Team Providers Care Wrister Name Role Phone Cecelia Patel MD Primary Care Provider U [facility] Taylor Becerra MD Primary Care Prov ider Encounter Details Date Type Department Care Team Description 02/09/2018 Orders Only Medical Records [address] [place] [id number] Abstract, Provider Social History Tobacco Use Types Packs/Day Years [...] as of this encounter Plan of Treatment Not on file documented as of this encounter Procedures Procedure Name Priority Date/Time Associated Diagnosis Comments OUTSIDE HOLTER MONITOR Routine 12/30/2017 documented in this encounter Results * OUTSIDE HOLTER MONITOR (12/30/2017) Provider Abstract CARDIOLOGY documented in this encounter Visit Diagnoses Not on filedocumented in this encounter Care Teams Wrister Relationship Specialty Start Date End Date Cecelia Patel MD PCP - General Internal Medicine 09/13/1601/19 Taylor Becerra MD [address] [place] [phone] PCP - General Internal Medicine 01/20/22 documented as of this encounter
--- OUTSIDE RECORDS SUMMARY | 2024-05-18 10:03 | XMS_ITS | Patient Health Record ---
Author Organization [facility] Address [address] [place] [address] Care Team Providers Care C Python Developer Name Role Phone Kacy Hansne Primary Care Provider Silvio White Unavailable [phone] Allergies Allergen (clinical drug ingredient) Drug/Non Drug Allergy documented on EMR Reaction Allergy Type Onset Date Status Latex Latex mild rash Allergy Active Reason For Referral No Information Medications Medication SIG (Take, Route, Fr equency, Duration) Notes Start Date End Date Status Alpa 3-0.03 MG 1 tablet Orally Once a day for 28 day(s) Active Alpa 3-0.03 MG 1 tablet Orally Once a day Active Social History Tobacco Use: Social History Observation Description Date Details (start date - stop date) Never Smoker NA - NA Tobacco Use/Smoking Question Answer Notes Are you a: nonsmoker Alcohol Screen Question Answer Notes Did you have a drink contain ing alcohol in the past year? Yes How often did you have a dri nk containing alcohol in the past year? Monthly or less (1 point) Points 1 Interpretation Negative Tobacco use other than smoking: Question Answer Notes Are you an other tobacco user? No Plan Of Treatment No Information Insurance Providers Payer Name Payer Address Payer Phone Subscriber Number Group Number Insured Name Patient Relationship to Insured Coverage Start Date Coverage End Date [employer] [address] JAREK Garcia [phone] [id number] Alexus Pena Self - patient is the insured Medical (General) History Medical History History ICD Code Anxiety Hospitalization History Reason Date(Month/Year) C- dehydration 06/2022
[2024-05-18 10:30] LABS: Basophils Percent Auto 0.5 % (0-2); Eosinophils Absolute Auto 0.1 X10*3/uL (0.0-0.4); Eosinophils Percent Auto 0.9 % (0-4); Hematocrit 41.7 % (37.0-47.0); Hemoglobin 13.7 g/dl (12.0-16.0); Imm Gran Abs Auto 0.01 X10*3/uL (0.00-0.03); Imm Gran Pct Auto 0.2 % (0.0-0.4); Lymphocytes Absolute Auto 2.2 X10*3/uL (1.2-4.9); Lymphocytes Percent Auto 37.9 % (20-40); Mean Corpuscular HGB Conc 32.9 g/dl (31.0-35.0); Mean Corpuscular Hemoglobin 28.5 pg (27.0-33.0); Mean Corpuscular Volume 86.7 fL (80.0-98.0); Mean Platelet Volume 11.8 fL (9.4-12.3); Monocytes Absolute Auto 0.3 X10*3/uL (0.1-1.2); Monocytes Percent Auto 5.2 % (2-11); Neutrophils Absolute Auto 3.2 x10*3/uL (2.0-8.3); Neutrophils Percent Auto 55.3 % (45-73); Platelet Count 225 X10*3/uL (160-400); Red Blood Count 4.81 X10*6/uL (4.20-5.50); Red Cell Distribution Width 13.9 % (11.0-16.0); White Blood Count 5.7 X10*3/uL (4.8-10.8)
[2024-05-18 10:35] LABS: Appearance Urine Cloudy; Color Urine Dark Yellow; Glucose Urine UA Negative (Negative); Leukocyte Esterase Urine Negative (Negative); Nitrite Urine Negative (Negative); Specific Gravity - Urine >= 1.030 (1.005-1.025); UMIC TRIGGER UACC YES; Urine Blood Large (3+) (Negative); Urine Ketones Negative (Negative); Urine Protein Trace mg/dL (Neg-Trace)
[2024-05-18 10:41] LABS: Bacteria Urine 1+ (None Seen); Hyaline Casts Urine 0-2 /LPF (0-2); RBC Urine >20 /HPF (0-2); WBC Urine 0-5 /HPF (0-5)
[2024-05-18 11:20] LABS: Estimated Average Glucose 123 mg/dL; Hemoglobin A1C 147.4377 umol/L; Hemoglobin A1c % 5.9 % (<6.0)
[2024-05-18 12:19] LABS: Alanine Aminotransferase 25 U/L (0-31); Albumin Level 3.9 g/dL (3.5-5.0); Alkaline Phosphatase 65 U/L (39-117); Anion Gap 9 (12-20); Aspartate Amino Transferase 32 U/L (5-31); Bilirubin Total 0.3 mg/dL (0.0-1.0); Blood Urea Nitrogen 10 mg/dL (9-16); Carbon Dioxide 23 mmol/L (22-29); Chloride 112 mmol/L (96-108); Cholesterol 117 mg/dL (<200); Estimated Glomerular Filt Rate > 60; Glucose Random 88 mg/dL (60-115); HDL Cholesterol 46 mg/dL (>40); LDL Cholesterol Calculated 35 mg/dL (<100); Potassium 4.1 mmol/L (3.3-5.1); Sodium 140 mmol/L (135-145); Total Protein 7.3 g/dL (6.5-8.0); Triglycerides 181 mg/dL (<150)
[2024-05-18 12:23] LABS: Folate 12.4 ng/mL (> or = 4.0); Vitamin B12 585 pg/mL (200-900)
[2024-05-18 12:49] LABS: Free T4 (Free Thyroxine) 0.96 ng/dL (0.71-1.85); Thyroid Stimulating Hormone 1.51 uIU/mL (0.32-4.0); Vitamin D 25-OH Total 40.2 ng/mL (>30)
== END 2024-05-18 09:18 | disposition home or self-care (01) ==
LOC: HO.LAB 09:17
PROVIDERS: PCP Internal Medicine; Visit Provider Internal Medicine
DX: E78.00 Pure hypercholesterolemia, unspecified (principal); R73.01 Impaired fasting glucose
CPT/HCPCS: 36415; 80053; 80061; 81001; 82306; 82607; 82746; 83036; 84439; 84443; 85025

== ENCOUNTER 2024-05-25 09:27 | Outpatient (AMB) | payer OTHER, SELFPAY ==
[2024-05-25 09:32] VITALS: BP 114/78; PULSE 84; O2SAT 98; BMI 29.6
--- NOTE | 2024-05-25 09:32 | A.OFFPC_ITS ---
Vital Signs 05/25/24 09:32 Height 5 ft 8 in Weight 195 lb BMI 29.6 BP 114/78 Blood Pressure Location Lt brachial Position Sitting Pulse 84 Pulse Source Pulse Oximeter Pulse Oximetry (%) 98 Oxygen Delivery Method Room Air Intake Visit Reasons: Lab Results Allergies No Known Allergies Allergy (Verified 05/25/24 09:32) Tobacco use date assessed: 05/25/24 Dental Screening Dental Screen Date: 05/25/24 Did you have a dental visit in the last 12 months?: Yes Did you have a dental problem in the last 6 months where you did not have access to dental care?: No Was dental information given to patient?: Patient has dentist [facility] Medical History Overweight (BMI 25.0-29.9) Vitamin D deficiency Surgical History No pertinent past surgical history Family History (Updated 07/28/22 @ 10:26 by Merissa Crandall [facility]) Father No problems noted. Mother Myocardial infarct Brother Autism Maternal Aunt Thyroid cancer Paternal Uncle Colon cancer Social History (Updated 08/10/23 @ 12:09 by Kacy Hansen MD) Housing: House Alcohol intake: current Comment: once a week 1 drink Patient Tobacco Use Status: Never used Tobacco Tobacco use type: Cigarette e-Cigarette/Vaping Use: Never Used Second Hand Smoke Exposure: No service: No Current occupational status: employed Cognitive needs: Yes Hearing needs: No Vision needs: No Questionnaire PHQ-9 Over the last 2 weeks, how often have you been bothered by any of the following problems? 1. Little interest or pleasure in doing things: not at all 2. Feeling down, depressed, or hopeless: several days 3. Trouble falling or staying asleep, or sleeping too much: not at all 4. Feeling tired or having little energy: more than half the days 5. Poor appetite or overeating: not at all 6. Feeling bad about yourself - or that you are a failure or have let yourself or your family down: not at all 7. Trouble concentrating on things, such as reading the newspaper or watching television: more than half the days 8. Moving or speaking so slowly that other people could have noticed. Or the opposite - being so fidgety or restless that you have been moving around a lot more than usual: not at all 9. Thoughts that you would be better off or of hurting yourself in some way: not at all Total score: 5 Depression Screening Interpretation: Negative Depression Screening Done: Yes 96078 - PHQ-9 Billing: Yes Source: Developed by Drs. Kashif Rao, Mandy Akins, Tyron Ludwig and colleagues, with an educational jevon from [employer]. Thrive Questionnaire Date Thrive assessed: 05/25/24 I am a: Patient What is your living situation today?: I have a steady place to live Within the past 12 months, did the food you bought not last and you didn't have the money to get more?: Never true Within the past 12 months, did you worry whether your food would run out before you got money to buy more?: Never true Do you have trouble paying for medicines?: No Do you have trouble getting transportation to medical appointments?: No Do you have trouble paying your heating and electricity bill?: No Do you have trouble taking care of your child, family member or friend?: No Do you have trouble with day-to-day activities such as bathing, preparing meals, shopping, managing finances, etc.?: No Are you currently unemployed and looking for a job?: No Are you interested in more education?: No Currently or been in a relationship where the following occur: No concerns reported THRIVE Score: 0 AUDIT C Alcohol Use Questionnaire (AUDIT-C) 2. How many drinks containing alcohol do you have on a typical day when you are drinking?: 1 or 2 3. How often do you have six or more drinks on one occasion?: Never Total Score: 0 ODIN-7 AMB Questionnaire ODIN-7 Date ODIN - 7 assessed: 05/25/24 Feeling nervous, anxious, or on edge: 1 = Several days Not being able to stop or control worryin = Not at all Worrying too much about different things: 1 = Several days Trouble relaxin = Not at all Being so restless that it is hard to sit still: 0 = Not at all Becoming easily annoyed or irritable: 0 = Not at all Feeling afraid as if something awful might happen: 1 = Several days Total ODIN-7 score (0-4 normal; 5-9 mild; 10-14 moderate; 15-21 severe): 3 Source: Developed by Drs. Kashif Rao, Mandy Akins, Tyron Ludwig and colleagues, with an educational ejvon from [employer]. ODIN-7 Assessment Billing ODIN-7 Assessment Tool: ODIN-7 Assessment 93306 Physical exam (Primary Care) Vital Signs: Last Vital Signs Pulse 84 05/25/24 09:32 BP 114/78 05/25/24 09:32 Pulse Ox 98 05/25/24 09:32 Oxygen Delivery Method Room Air 05/25/24 09:32 BMI result Body Mass Index 29.6 Tobacco/Smoking Status: Tobacco use Status Tobacco use date assessed 05/25/24 05/25/24 09:34 Patient Tobacco Use Status Never used Tobacco 05/25/24 09:34 Tobacco use type Cigarette 05/25/24 09:34 e-Cigarette/Vaping Use Never Used 05/25/24 09:34 PHQ-9: PHQ-9 Score PHQ-9: Total score 5 05/25/24 10:11 Depression Screening Interpretation: Negative Thrive Assessment: Date of Thrive Assessment Date Thrive assessed 05/25/24 05/25/24 09:35 Currently or been in a relationship where the following occur: No concerns reported Const General: alert; No acute distress Eyes Conjunctivae: conjunctivae normal Resp Auscultation: clear to auscultation bilaterally Cardio Rate: regular rate Rhythm: regular rhythm GI Inspection: Yes normal to inspection Extrem General: Yes normal to inspection and No edema Coding Level of Care Code Est Pt Level 4 (62662) Diagnoses Impaired fasting glucose R73.01 Overweight (BMI 25.0-29.9) E66.3 Hematuria R31.9 Hypertriglyceridemia E78.1 Exercise induced bronchospasm J45.990 Additional Codes ODIN-7 Assessment Billing - ODIN-7 Assessment Tool: ODIN-7 Assessment 31091 ([id number]) PHQ-9 - 02627 - PHQ-9 Billing: Yes ([id number]) Assessment & Plan Assessment & Plan (1) Impaired fasting glucose: Code(s): R73.01 - Impaired fasting glucose Category: Medical Plan: Decrease the amount of carbohydrate intake, pasta, bread, rice and potatoes are all sugar and that is aside from all the sweet stuff, remember that fruits are good but they are Sweet also. (2) Overweight (BMI 25.0-29.9): Code(s): E66.3 - Overweight Category: Medical Plan: Diet and exercise (3) Hematuria: Code(s): R31.9 - Hematuria, unspecified Category: Medical (4) Hypertriglyceridemia: Code(s): E78.1 - Pure hyperglyceridemia Category: Medical Plan: Avoid fried foods, chicken skin, eggs, butter margarine, pastries and meat. Be it pork or beef they have a lot of cholesterol LDL goal of less than 130 and triglyceride of less than 150 (5) Exercise induced bronchospasm: Code(s): J45.990 - Exercise induced bronchospasm Category: Medical Plan: Continue the albuterol inhaler as needed Plan History of Present Illness The patient is a 33-year-old female presenting with a primary concern of elevated triglycerides and hematuria observed during recent laboratory evaluations. She has a background of generalized anxiety disorder and active airway disease, currently managed with an albuterol inhaler as needed. The laboratory studies identified an elevated hemoglobin A1c of 5.9%, suggesting potential glucose metabolism disturbance, though fasting blood sugars have not been elevated. The triglyceride levels showed a reduction from 203 mg/dL to 181 mg/dL over time, despite lifestyle changes aimed at improving dietary habits and increasing physical activity. The patient's dietary intake includes an emphasis on healthier rice options and wheat pasta; however, she retains a preference for carbohydrate-rich foods. Regular physical activity comprises mainly cardiovascular exercises done three to four times weekly. The presence of hematuria in her urinalysis coincides with her menstrual period, which the patient believes affected the results. Despite lifestyle modifications, the patient has been unable to achieve desired weight loss, expressing concern in relation to her triglyceride and sugar levels, influenced partly by family dietary patterns and historical habits. Health Maintenance - Continued encouragement of diet and exercise changes to reduce triglycerides and improve metabolic health. - Monitoring of glucose metabolism given the increased hemoglobin A1c levels. - Regular cardiovascular exercise three to four times per week. - Discussion of dietary changes including reduced carbohydrate intake and mindful consumption of sweets. Social History - Engages in regular cardiovascular activity, exercising three to four times per week. - Efforts to modify diet with healthier rice options and wheat pasta, albeit continuing carbohydrate-rich foods. - Limited consumption of fast food; preferences for baked or steamed foods. - Family influence noted in dietary patterns and glucose metabolism considerations. Review of Systems - Respiratory: Reports use of albuterol inhaler as needed. - Endocrine: Reports regular exercise; increased hemoglobin A1c observed. - Genitourinary: Reports hematuria during menstruation. - Metabolic: Reports dietary changes; concerns about weight and triglycerides. - Psychological: Reports history of generalized anxiety disorder. Physical Exam Results - Labs: Hemoglobin A1c elevated at 5.9%. Triglycerides assessed at 181 mg/dL. Caitlyn blood work indicating normal blood count, electrolytes, and renal function. Urinalysis with hematuria. Plan Management of the patient's hypertriglyceridemia involves continued emphasis on dietary modifications and enhanced exercise routines to lower levels below 150 mg/dL. Observing glucose metabolism with hemoglobin A1c within the borderline range, next steps involve monitoring changes with lifestyle interventions, given the family history and current lifestyle adaptations. The patient's anxiety disorder remains addressed with existing medication usage. Reassurance is provided regarding hematuria associated with menstruation, with further medical follow-up scheduled in three months along with appropriate laboratory retesting to examine improvements in triglyceride and glucose measures. Patient was informed and verbally consented to the use of an ambient scribe for clinic note documentation during this visit. Discussion Notes During our discussion, I emphasized the importance of lifestyle modifications for managing the patient's metabolic concerns, particularly focusing on carbohydrate reduction and physical activity. We explored strategies for dietary changes and exercise routines to address the patient's elevated triglyceride levels. For glucose management, the patient acknowledged the need to monitor her sugar intake and remain vigilant given family history. The risks and benefits of altering dietary patterns and the role of regular exercise were discussed. We agreed on a follow-up in three months, during which laboratory tests will be reassessed to monitor progress, ensuring alignment with the health goals discussed during this visit. Additionally, the patient inquired about the presence of hematuria, which was explained as being related to menstruation, with reassurance provided about its non-infectious nature. Patient Instructions - Continue with lifestyle modifications focusing on healthier dietary choices and regular physical activity. - Reduce intake of carbohydrates and sweets to manage triglyceride levels. - Use an albuterol inhaler as needed for airway symptoms. - Re-evaluate dietary habits and exercise intensity to address elevated A1c. - Ensure to follow-up in three months for retesting and monitoring of glucose and triglyceride levels. - Drink plenty of water, especially before meals, to aid digestion. Orders: Orders Hemoglobin A1c 3 Months R73.01 - Impaired fasting glucose Lipid Panel 3 Months E78.00 - Pure hypercholesterolemia, unspecified, E78.1 - Pure hyperglyceridemia Comprehensive Met. Panel 3 Months R73.01 - Impaired fasting glucose
--- OUTSIDE RECORDS SUMMARY | 2024-05-25 09:51 | XMS_ITS | Clinical Summary ---
Author Organization [facility] Address [address] [place] [address] Care Team Providers Care Stereoplotter Operator Name Role Phone Taylor Becerra MD Primary [...] H RISK PATIENTS (#1) 2053 Care Teams Stereoplotter Operator Relationship Specialty Start Date End Date Taylor Becerra MD [address] [place] [id number] PCP - General Internal Medicine 01/20/22
--- OUTSIDE RECORDS SUMMARY | 2024-05-25 09:52 | XMS_ITS | Encounter Summary ---
Author Organization [facility] Address [address] [place] [address] Care Team Providers Care Book Jogger Name Role Phone Cecelia Patel MD Primary Care Provider [facility] Taylor Becerra MD Primary Care Prov ider Encounter Details Date Type Department Care Team Description 02/09/2018 Orders Only Medical Records [address] [place] [id number] Abstract, Provider Social History Tobacco Use Types [...] on filedocumented in this encounter Care Teams Book Jogger Relationship Specialty Start Date End Date Cecelia Patel MD PCP - General Internal Medicine 09/13/1601/19 Taylor Becerra MD [address] [place] [address] PCP - General Internal Medicine 01/20/22 documented as of this encounter
--- OUTSIDE RECORDS SUMMARY | 2024-05-25 09:52 | XMS_ITS | Patient Health Record ---
Author Organization [facility] Address [address] [place] [address] Care Team Providers Care Bench Worker Binding Name Role Phone Kacy Hansen Primary Care Provider Silvio White Unavailable [phone] Allergies Allergen (clinical drug ingredient) Drug/Non Drug [...] Date Coverage End Date [employer] [id number] JAREK Garcia [phone] [id number] Alexus Pena Self - patient is the insured Medical (General) History Medical History History ICD Code Anxiety Hospitalization History Reason Date(Month/Year) C- dehydration 06/2022
== END 2024-05-25 10:22 | disposition home or self-care (01) ==
LOC: HO.HMCH 09:28
PROVIDERS: PCP Internal Medicine; Visit Provider Internal Medicine
DX: R73.01 Impaired fasting glucose (principal); E66.3 Overweight; R31.9 Hematuria, unspecified; E78.1 Pure hyperglyceridemia; J45.990 Exercise induced bronchospasm

== ENCOUNTER → 2024-05-25 09:27 | Outpatient (BNVA) | payer OTHER, SELFPAY | PROVIDERS: PCP Internal Medicine; Visit Provider Internal Medicine | DX: R73.01 Impaired fasting glucose (principal); E66.3 Overweight; R31.9 Hematuria, unspecified; E78.1 Pure hyperglyceridemia; J45.990 Exercise induced bronchospasm | CPT/HCPCS: 96127 ==

== ENCOUNTER 2024-08-31 08:10 | Outpatient (REF) | payer OTHER, SELFPAY ==
--- OUTSIDE RECORDS SUMMARY | 2024-08-31 08:13 | XMS_ITS | Patient Health Record ---
Author Organization [facility] Address [address] [place] [address] Care Team Providers Care Senior Operations Analyst Name Role Phone Kacy Hansen Primary Care Provider Silvio White Unavailable [phone] Allergies Allergen (clinical drug ingredient) Drug/Non Drug Allergy documented on EMR Reaction Allergy Type Onset Date Status Latex Latex mild rash Allergy Active Reason For Referral No Information Medications Medication SIG (Take, Route, Fr equency, Duration) Notes Start Date End Date Status Alpa 3-0.03 MG 1 tablet Orally Once a day; Duration: 28 day(s) Active Alpa 3-0.03 MG 1 [...] Date Coverage End Date [employer] [address] JAREK Garcia [phone] [id number] Alexus Pena Self - patient is the insured Medical (General) History Medical History History ICD Code Anxiety Hospitalization History Reason Date(Month/Year) C- dehydration 06/2022
[2024-08-31 08:54] LABS: Hemoglobin A1C 149.1906 umol/L; Total Hemoglobin (HGBA1C) 3600.6107 umol/L
[2024-08-31 09:15] LABS: Alanine Aminotransferase 18 U/L (0-31); Albumin Level 4.0 g/dL (3.5-5.0); Alkaline Phosphatase 61 U/L (39-117); Anion Gap 13 (12-20); Aspartate Amino Transferase 29 U/L (5-31); Blood Urea Nitrogen 10 mg/dL (9-16); Calcium 8.9 mg/dL (8.4-10.2); Carbon Dioxide 20 mmol/L (22-29); Chloride 109 mmol/L (96-108); Cholesterol 117 mg/dL (<200); Estimated Glomerular Filt Rate > 60; HDL Cholesterol 56 mg/dL (>40); Potassium 3.9 mmol/L (3.3-5.1); Sodium 138 mmol/L (135-145); Total Protein 7.5 g/dL (6.5-8.0); Triglycerides 199 mg/dL (<150)
== END 2024-08-31 08:11 | disposition home or self-care (01) ==
LOC: HO.LAB 08:10
PROVIDERS: PCP Internal Medicine; Visit Provider Internal Medicine
DX: E78.1 Pure hyperglyceridemia (principal); E78.00 Pure hypercholesterolemia, unspecified; R73.01 Impaired fasting glucose
CPT/HCPCS: 36415; 80053; 80061; 83036

== ENCOUNTER 2024-09-04 10:46 | Outpatient (AMB) | payer OTHER, SELFPAY ==
--- NOTE | 2024-09-04 10:54 | A.OFFPC_ITS ---
Vital Signs 09/04/24 10:55 Height 5 ft 8 in Weight 195 lb 4 oz BMI 29.7 BP 134/78 Blood Pressure Location Lt brachial Position Sitting Pulse 88 Temp 97.1 F Temp Source Temporal Artery Scan Oxygen Delivery Method Room Air Oxygen Flow Rate 99 Intake Visit Reasons: annual exam Social Work Therapist Required: No Accompanied by: Self / Same As Patient Allergies No Known Allergies Allergy (Verified 09/04/24 11:09) Medication List - Last Reconciled 09/04/24 by Haley Loaiza PA-C albuterol sulfate 90 mcg/actuation (ProAir HFA) 2 puffs inhalation QID PRN cholecalciferol (vitamin D3) 125 mcg PO DAILY drospirenone-ethinyl estradiol 3-0.03 mg (Alpa) 1 tab PO DAILY magnesium 250 mg PO DAILY multivitamin 1 tab PO DAILY Tobacco use date assessed: 09/04/24 Dental Screening Dental Screen Date: 09/04/24 HPI annual exam HPI Details 33-year-old female with past medical his tory of anxiety, eczema, hypertriglyceridemia last seen 05/[address] Hansen coming in for annual exam. Presenting for an annual wellness visit. Reports increased anxiety due to work stress, with a positive screening result. Prefers non-pharmacological management. Prediabetes A1c at 5.9%, indicating prediabetes. Weight management is challenging, potentially linked to control. Triglycerides increased to 199 mg/dL despite lifestyle modifications. Weight and family history may contribute. Pap smear: UTD with tamale machine feeder Vaccines: Td UTD [facility] Medical History Overweight (BMI 25.0-29.9) Vitamin D deficiency Surgical History No pertinent past surgical history Family History Father No problems noted. Mother Myocardial infarct Brother Autism Maternal Aunt Thyroid cancer Paternal Uncle Colon cancer Social History Housing: House Alcohol intake: current Comment: once a week 1 drink Patient Tobacco Use Status: Never used Tobacco Tobacco use type: Cigarette e-Cigarette/Vaping Use: Never Used Second Hand Smoke Exposure: No service: No Current occupational status: employed Cognitive needs: Yes Hearing needs: No Vision needs: No Questionnaire PHQ-9 Over the last 2 weeks, how often have you been bothered by any of the following problems? 1. Little interest or pleasure in doing things: several days 2. Feeling down, depressed, or hopeless: not at all 3. Trouble falling or staying asleep, or sleeping too much: not at all 4. Feeling tired or having little energy: several days 5. Poor appetite or overeating: not at all 6. Feeling bad about yourself - or that you are a failure or have let yourself or your family down: not at all 7. Trouble concentrating on things, such as reading the newspaper or watching television: not at all 8. Moving or speaking so slowly that other people could have noticed. Or the opposite - being so fidgety or restless that you have been moving around a lot more than usual: not at all 9. Thoughts that you would be better off or of hurting yourself in some way: not at all Total score: 2 Depression Screening Interpretation: Negative Depression Screening Done: Yes 30375 - PHQ-9 Billing: Yes Source: Developed by Drs. Kashif Rao, Mandy Akins, Tyron Ludwig and colleagues, with an educational jevon from [employer]. Thrive Questionnaire Date Thrive assessed: 09/04/24 I am a: Patient What is your living situation today?: I have a steady place to live Within the past 12 months, did the food you bought not last and you didn't have the money to get more?: Never true Within the past 12 months, did you worry whether your food would run out before you got money to buy more?: Never true Do you have trouble paying for medicines?: No Do you have trouble getting transportation to medical appointments?: No Do you have trouble paying your heating and electricity bill?: No Do you have trouble taking care of your child, family member or friend?: No Do you have trouble with day-to-day activities such as bathing, preparing meals, shopping, managing finances, etc.?: No Are you currently unemployed and looking for a job?: No Are you interested in more education?: No Please select the resources that you would like help with: None Currently or been in a relationship where the following occur: No concerns reported THRIVE Score: 0 AUDIT C Alcohol Use Questionnaire (AUDIT-C) 1. How often do you have a drink containing alcohol?: Monthly or less Total Score: 1 ODIN-7 AMB Questionnaire ODIN-7 Date ODIN - 7 assessed: 09/04/24 Feeling nervous, anxious, or on edge: 1 = Several days Not being able to stop or control worryin = Several days Worrying too much about different things: 0 = Not at all Trouble relaxin = Several days Being so restless that it is hard to sit still: 1 = Several days Becoming easily annoyed or irritable: 1 = Several days Feeling afraid as if something awful might happen: 0 = Not at all Total ODIN-7 score (0-4 normal; 5-9 mild; 10-14 moderate; 15-21 severe): 5 Source: Developed by Drs. Kashif Rao, Mandy Akins, Tyron Ludwig and colleagues, with an educational jevon from [employer]. ODIN-7 Assessment Billing ODIN-7 Assessment Tool: ODIN-7 Assessment 47293 Review of Systems Const Denies body aches, Denies fatigue, Denies fever(s), Denies frequent falls, Reports headache(s) (once weekly ) and Denies weakness Eyes Reports no additional complaints and Denies change in vision ENT Denies dysphagia, Denies dizziness, Denies facial pain, Reports headache(s) (once weekly ), Denies nasal congestion and Denies odynophagia Card Denies chest pain, Denies syncope, Denies leg edema, Denies lightheadedness and Denies dyspnea Resp Denies cough and Denies dyspnea GI Denies abdominal pain, Denies constipation, Denies dysphagia, Denies dyspepsia, Denies diarrhea, Denies nausea, Denies odynophagia and Denies vomiting Denies urinary frequency, Denies dysuria, Denies urinary hesitancy and Denies urinary urgency Musc Denies back pain and Denies myalgias Skin/Breast Reports system reviewed and no additional complaints, except as documented Neuro Denies dizziness, Denies syncope, Denies frequent falls, Reports headache(s) (once weekly ) and Denies weakness Psych Reports no additional complaints Endo Denies fatigue Physical exam (Primary Care) Vital Signs: Last Vital Signs Temp 97.1 F 09/04/24 10:55 Pulse 88 09/04/24 10:55 BP 134/78 09/04/24 10:55 Oxygen Delivery Method Room Air 09/04/24 10:55 Oxygen Flow Rate 99 09/04/24 10:55 BMI result Body Mass Index 29.7 Tobacco/Smoking Status: Tobacco use Status Tobacco use date assessed 09/04/24 09/04/24 10:59 Patient Tobacco Use Status Never used Tobacco 09/04/24 10:59 Tobacco use type Cigarette 09/04/24 10:59 e-Cigarette/Vaping Use Never Used 09/04/24 10:59 PHQ-9: PHQ-9 Score PHQ-9: Total score 2 09/04/24 11:14 Depression Screening Interpretation: Negative Thrive Assessment: Date of Thrive Assessment Date Thrive assessed 09/04/24 09/04/24 10:59 Currently or been in a relationship where the following occur: No concerns reported Const General: cooperative, healthy appearing, comfortable and no acute distress Orientation/consciousness: patient oriented x3 HENMT Head: Yes normocephalic Ears: hearing grossly normal bilaterally, external ears normal, TM's normal bilaterally and EAC's normal General nose exam: Normal external nose present Face and sinus: Yes normal facial exam and Yes sinuses nontender Mouth: Normal oral and palatal mucosa present and tongue normal Throat: Yes posterior oropharynx normal Eyes General: appearance normal, both eyes and all related structures Conjunctivae: conjunctivae normal Pupils: Equal, round and reactive pupils present EOM: EOMs intact bilaterally and No Nystagmus present Neck Neck: Yes normal visual inspection, Yes full ROM and Yes no lymphadenopathy Chest Chest palpation & inspection: normal inspection of the chest Resp Effort & Inspection: normal respiratory effort Auscultation: clear to auscultation bilaterally, no crackles, no rales, no rhonchi, no wheezes and breath sounds present Cardio Rate: regular rate Rhythm: regular rhythm Peripheral pulses: radial pulses present and dorsalis pedis present GI Inspection: Yes normal to inspection and No Abdominal wall edema Palpation (GI): Soft to palpation, not firm and nontender Auscultation: normal bowel sounds Rectal Exam - Female: deferred General: Yes no CVA tenderness Back/Spine/Pelvis Back: no CVA tenderness Skin General skin exam: no rashes or lesions noted Neuro General: patient oriented x3 Cranial nerves: Yes Equal, round and reactive pupils present, Yes Midline tongue present, Yes Ability to bilaterally elevate shoulders present and No Nystagmus present Gait exam (Neuro): Normal gait present Extrem General: Yes normal to inspection, Yes full ROM, No no pedal edema and No edema Psych Speech and movement: Normal speech and movement present Affect: normal affect Insight: Good insight present (Psych) Judgement: Good judgement present (Psych) Coding Level of Care Code Est Pt Prev Care 18-39y(68195) Diagnoses Annual physical exam Z00.00 Anxiety F41.9 Hypertriglyceridemia E78.1 Impaired fasting glucose R73.01 Overweight (BMI 25.0-29.9) E66.3 Exercise induced bronchospasm J45.990 Additional Codes ODIN-7 Assessment Billing - ODIN-7 Assessment Tool: ODIN-7 Assessment 36583 ([id number]) PHQ-9 - 06948 - PHQ-9 Billing: Yes ([id number]) Assessment & Plan Assessment & Plan (1) Annual physical exam: Code(s): Z00.00 - Encounter for general adult medical examination without abnormal findings Category: Medical Plan: Patient is up-to-date on all recommended routine screenings and vaccinations for her age. She routinely follows with a ophthalmic surgical assistant and eye doctor. Blood work is up-to-date and has been reviewed with the patient today. Plan to follow up in [address] Hansen after repeat blood work has been completed. (2) Anxiety: Code(s): F41.9 - Anxiety disorder, unspecified Category: Medical Plan: Feels her symptoms are well managed at this time. Declining medication or counseling referral this time. (3) Hypertriglyceridemia: Code(s): E78.1 - Pure hyperglyceridemia Category: Medical Plan: Avoid foods that are high in cholesterol such as red meat, fried foods, eggs and baked goods. Triglyceride goal of less than 150 and LDL goal of less than 130. Referral placed for leadership program associate today (4) Impaired fasting glucose: Code(s): R73.01 - Impaired fasting glucose Category: Medical Plan: Decrease the amount of carbohydrates such as pasta, bread, rice, and potatoes and limit the amount of sweets. Although fruits are generally healthy they should be eaten in moderation as they are still high in sugar. (5) Overweight (BMI 25.0-29.9): Code(s): E66.3 - Overweight Category: Medical Plan: Healthy diet and regular exercise is encouraged. Referral placed for leadership program associate today (6) Exercise induced bronchospasm: Code(s): J45.990 - Exercise induced bronchospasm Category: Medical Plan: Continue the albuterol inhaler as needed Plan The patient will manage her anxiety through non-pharmacological means and has been referred to a leadership program associate for dietary guidance. She is advised to continue her exercise routine and make dietary changes to manage her prediabetes and hypertriglyceridemia. Magnesium is recommended for restless leg symptoms, and she should monitor for symptom patterns. Follow-up appointments will be arranged to evaluate her progress and modify the plan as needed. This note was constructed using voice recognition software. While every effort has been made to ensure accuracy and form setter helper, still areas may have been included sometimes these areas may affect the content or meeting of the given symptoms. Total time spent caring for the patient today was 30 minutes. This includes time spent before the visit reviewing the chart, time spent during the visit, and time spent after the visit and documentation. Patient was informed and verbally consented to the use of an ambient scribe for clinic note documentation during this visit. Orders: Orders Lipid Panel 3 Months E78.1 - Pure hyperglyceridemia Referrals Director [facility] Nutrition Referral E66.3 - Overweight, E78.1 - Pure hyperglyceridemia, R73.01 - Impaired fasting glucose
[2024-09-04 10:55] VITALS: BP 134/78; PULSE 88; TEMP 36.2; BMI 29.7
--- OUTSIDE RECORDS SUMMARY | 2024-09-04 12:01 | XMS_ITS | Patient Health Record ---
Author Organization [facility] Address [address] [place] [address] Care Team Providers Care Line Camera Operator Name Role Phone Kacy Hansen Primary Care Provider Silvio White Unavailable [phone] Allergies Allergen (clinical drug ingredient) Drug/Non Drug [...] Date Coverage End Date [employer] [address] JAREK Garcia [phone] [id number] Alexus Pena Self - patient is the insured Medical (General) History Medical History History ICD Code Anxiety Hospitalization History Reason Date(Month/Year) C- dehydration 06/2022
== END 2024-09-04 11:34 | disposition home or self-care (01) ==
LOC: HO.HMCH 10:47
PROVIDERS: PCP Internal Medicine
DX: Z00.00 Encounter for general adult medical examination without abnormal findings (principal); F41.9 Anxiety disorder, unspecified; E78.1 Pure hyperglyceridemia; R73.01 Impaired fasting glucose; E66.3 Overweight; J45.990 Exercise induced bronchospasm

== ENCOUNTER → 2024-09-04 10:46 | Outpatient (BNVA) | payer OTHER, SELFPAY | PROVIDERS: PCP Internal Medicine | DX: Z00.00 Encounter for general adult medical examination without abnormal findings (principal); L30.9 Dermatitis, unspecified; F41.9 Anxiety disorder, unspecified; E78.1 Pure hyperglyceridemia; R73.01 Impaired fasting glucose; E66.3 Overweight; J45.990 Exercise induced bronchospasm; Z68.29 Body mass index [BMI] 29.0-29.9, adult | CPT/HCPCS: 96127 ==

== ENCOUNTER 2024-11-01 11:15 | Outpatient (AMB) | payer OTHER, SELFPAY ==
[2024-11-01 11:43] VITALS: BMI 29.7
--- NOTE | 2024-11-01 11:43 | MHC.AMNUTRGE ---
VS Expanded 11/01/24 11:43 11/07/24 14:09 Height 5 ft 8 in 5 ft 8 in Weight 195 lb 1.745 oz 195 lb BMI 29.7 29.6 Intake Visit Reasons: Overweight Allergies No Known Allergies Allergy (Verified 11/05/24 08:31) Nutrition Presentation Details: Pt presents for MNT for overweight food frequency fruits: 2-3 /d veg: daily 2-3 serving dairy 3-4 /d fish 1/wk beverages : water, natural fruit juices physical activity : ADL eoth /smoking---- BS Monitoring Most Recent Diabetes Results: Cholesterol, (<200) 117 mg/dL 08/31/24 HDL Cholesterol, (>40) 56 mg/dL 08/31/24 Triglycerides, (<150) 199 mg/dL H 08/31/24 Creatinine, (0.5-1.4) 0.59 mg/dL 08/31/24 BUN, (9-16) 10 mg/dL 08/31/24 Sodium, (135-145) 138 mmol/L 08/31/24 Potassium, (3.3-5.1) 3.9 mmol/L 08/31/24 Chloride, (96-108) 109 mmol/L H 08/31/24 Carbon Dioxide, (22-29) 20 mmol/L L 08/31/24 Calcium, (8.4-10.2) 8.9 mg/dL 08/31/24 AST, (5-31) 29 U/L 08/31/24 ALT, (0-31) 18 U/L 08/31/24 Total Protein, (6.5-8.0) 7.5 g/dL 08/31/24 Albumin, (3.5-5.0) 4.0 g/dL 08/31/24 VGS-Dxyvjoh-Yq.Jeor Equation Height: 5 ft 8 in Weight: 195 lb Resting Metabolic Rate: 1629.92 Calculated Activity Level: Sedentary Calories Needed to Maintain Weight: 1955.90 Diagnosis Nutrition problem #1: food nutri know defi As related to (etiology) #1: diagnosis As evidenced by (sign/symptom) #1: knowledge deficit of diet [facility] Medical History (Updated 11/07/24 @ 14:12 by Yvonne Lezama, RD, LDN) Bacterial conjunctivitis Overweight (BMI 25.0-29.9) Vitamin D deficiency Surgical History No pertinent past surgical history Family History Father No problems noted. Mother Myocardial infarct Brother Autism Maternal Aunt Thyroid cancer Paternal Uncle Colon cancer Social History Housing: House Alcohol intake: current Comment: once a week 1 drink Patient Tobacco Use Status: Never used Tobacco Tobacco use type: Cigarette e-Cigarette/Vaping Use: Never Used Second Hand Smoke Exposure: No service: No Current occupational status: employed Cognitive needs: Yes Hearing needs: No Vision needs: No Assessment & Plan Assessment & Plan (1) Impaired fasting glucose: Comment: with overweight Code(s): R73.01 - Impaired fasting glucose Category: Medical Plan: current wt: 89 kg ( 11/08 ) est kcal needs as per MSJ: 2000 est protein needs as per 1 g/kg BW: 90 est fluid needs as per 30 ml/kg BW: 2600 Recommended fiber > 12 g /day and gradually increase up to 25-28 g /day or as tolerated Nutrition topics discussed : Reviewed (R), Pt verbalized understanding (V) , not applicable (N/A) R : Healthy Plate Method Concept: R, : Carbohydrates: food sources of carbohydrates, relationship of carbohydrates to blood glucose, fatty liver GI health. Recommended total amount of carbohydrates per meals and snack. Differences between simple carbohydrates and complex carbohydrates R : Lean protein foods including vegan , vegetarian sources of protein. Benefits of protein (including but not limited to healing, nutritional value , benefits in weight loss, glucose control R, V, N/A: Fats : Source of fats, benefits of fats. Difference between saturated and unsaturated fats. Saturated fats and its contribution to inflammation R, : Fiber: food sources and role of fiber in the diet (including but not limited to its role as a prebiotic, benefits in constipation, role in IBS , role in glucose control and cholesterol level) R, V, N/A: Hydration: role of hydration and prevention of dehydration or over hydration. Foods and water content. R, V, N/A: Vitamins and Minerals in foods and supplements R, V, N/A: Interpreting food labels, including serving size, macronutrients, vitamins, minerals, allergens, ingredient list , % daily value Patient Instructions: Work on reducing total carb to less than 60 g at dinner , choosing whole grain foods see meal plan with meal ideas and food portions include fish at least twice a week Coding Level of Care Code Nutr Indiv Intake (06903) Diagnoses Impaired fasting glucose R73.01 Time Spent (min) 30
[2024-11-07 14:09] VITALS: BMI 29.6
== END 2024-11-01 12:14 | disposition home or self-care (01) ==
LOC: HO.ENCR 11:15
PROVIDERS: PCP Internal Medicine; Visit Provider Dietitian, Registered
DX: R73.01 Impaired fasting glucose (principal)

== ENCOUNTER → 2024-11-01 11:15 | Outpatient (BNVA) | payer OTHER, SELFPAY | PROVIDERS: PCP Internal Medicine; Visit Provider Dietitian, Registered | DX: R73.01 Impaired fasting glucose (principal); E66.3 Overweight; E55.9 Vitamin D deficiency, unspecified; Z68.29 Body mass index [BMI] 29.0-29.9, adult | CPT/HCPCS: 97802 ==

== ENCOUNTER 2024-11-05 08:17 | Outpatient (AMB) | payer OTHER, SELFPAY ==
[2024-11-05 08:31] VITALS: BP 130/78; PULSE 94; TEMP 37.2; O2SAT 99; BMI 30.1
--- NOTE | 2024-11-05 08:31 | AM.OFFWIN_ITS ---
Intake Vital Signs 11/05/24 08:31 Height 5 ft 8 in Weight 198 lb BMI 30.1 BP 130/78 Blood Pressure Location Lt brachial Position Sitting Pulse 94 Pulse Source Pulse Oximeter Temp 98.9 F Temp Source Oral Pulse Oximetry (%) 99 Intake Visit Reasons: ep possible pink eye in right eye Intake Note: pt is here for right eye, red eye, since tuesday Patient Tobacco Use Status: Never used Tobacco Allergies No Known Allergies Allergy (Verified 11/05/24 08:31) Medication List - Last Reconciled 11/05/24 by Melva Nicholson NP albuterol sulfate 90 mcg/actuation (ProAir HFA) 2 puffs inhalation QID PRN cholecalciferol (vitamin D3) 125 mcg PO DAILY ciprofloxacin HCl 0.3% Put 2 drops in the affected eye every 2 hrs up to 8 times per day for 2 days; then 4 times per day for 5 days. drospirenone-ethinyl estradiol 3-0.03 mg (Alpa) 1 tab PO DAILY magnesium 250 mg PO DAILY multivitamin 1 tab PO DAILY Do you need a note to return to daycare/school/sports/work: Yes HPI HPI Comments History of Present Illness Details 33 y/o Female Patient who presents to [facility] in clinic with c/o Right eye redness and itching since Tuesday. Reports discomfort with eye movement and tenderness around the Periorbital region. She does wear contact lens (the Daily kind) and denies any changes to her cleaning solution. Denies Vision changes or light sensivity. Reports some discharge in morning. Denies any Trauma or injury to the eye. [facility] Medical History (Updated 11/05/24 @ 08:58 by Melva Nicholson NP) Bacterial conjunctivitis Overweight (BMI 25.0-29.9) Vitamin D deficiency Surgical History No pertinent past surgical history Family History Father No problems noted. Mother Myocardial infarct Brother Autism Maternal Aunt Thyroid cancer Paternal Uncle Colon cancer Social History Housing: House Alcohol intake: current Comment: once a week 1 drink Patient Tobacco Use Status: Never used Tobacco Tobacco use type: Cigarette e-Cigarette/Vaping Use: Never Used Second Hand Smoke Exposure: No service: No Current occupational status: employed Cognitive needs: Yes Hearing needs: No Vision needs: No Review of Systems Const All systems reviewed & are unremarkable except as noted in HPI and below Physical Exam Vital Signs: Last Vital Signs Temp 98.9 F 11/05/24 08:31 Pulse 94 11/05/24 08:31 BP 130/78 11/05/24 08:31 Pulse Ox 99 11/05/24 08:31 BMI result Body Mass Index 30.1 Const General: no acute distress Nutritional Appearance: well nourished Orientation/consciousness: patient oriented x3 Eyes Periorbital: periorbital findings abnormal right periorbital tenderness; no erythema and no crepitus Conjunctivae: conjunctival abnormal right conjunctival injection diffuse and discharge mucoid Pupils: Equal, round and reactive pupils present EOM: EOMs intact bilaterally Direct Ophthalmoscopy: normal light reflex and no photophobia Neuro General: patient oriented x3, gait normal and moves all extremities Cranial nerves: Yes Equal, round and reactive pupils present Psych Speech and movement: Normal speech and movement present Assessment & Plan Assessment & Plan (1) Bacterial conjunctivitis: Code(s): H10.9 - Unspecified conjunctivitis Plan: Ordered Abx Eye drops. Do not wear contact Lens for few days, until infection is cleared. Maintain good Eye Hygiene. Provided Phone number to Dr. Pizarro. Medications: New ciprofloxacin HCl 0.3% Put 2 drops in the affected eye every 2 hrs up to 8 times per day for 2 days; then 4 times per day for 5 days. 5 mL 0RF Coding Level of Care Code Est Pt Level 4 (28821) Diagnoses Bacterial conjunctivitis H10.9 Time Spent (min) 20
--- OUTSIDE RECORDS SUMMARY | 2024-11-05 09:29 | XMS_ITS | Patient Health Record ---
Author Organization [facility] Address [address] [place] [address] Care Team Providers Care Sample Finisher Name Role Phone Kacy Hansen Primary Care Provider Silvio White Unavailable [phone] Allergies Allergen (clinical drug ingredient) Drug/Non Drug [...] Date Coverage End Date C[employer]a [address] JAREK Garcia [phone] [id number] Alexus Pena Self - patient is the insured Medical (General) History Medical History History ICD Code Anxiety Hospitalization History Reason Date(Month/Year) C- dehydration 06/2022
== END 2024-11-05 09:00 | disposition home or self-care (01) ==
PROVIDERS: PCP Internal Medicine; Visit Provider Nurse Practitioner Family
DX: H10.9 Unspecified conjunctivitis (principal)

== ENCOUNTER 2024-12-20 07:27 | Outpatient (REF) | payer OTHER, SELFPAY ==
--- OUTSIDE RECORDS SUMMARY | 2024-12-20 07:30 | XMS_ITS | Encounter Summary ---
Author Organization [facility] Address [address] [place] [address] Care Team Providers Care Automotive Refinisher Name Role Phone Cecelia Patel MD Primary Care Provider Taylor Aburto MD Primary Care Prov ider Reason for Visit * Reason Onset Date Comments Testing 11/13/2019 Encounter Details Date Type Department Care Team Description 11/13/2019 Telephone Adult Medicine [address] [id number] Cecelia Patel MD Testing Social History Tobacco Use Types Packs/Day Years [...] Assigned at Date Recorded Not on file COVID-19 Exposure Response Date Recorded In the last month, have you been in contact with someone who was confirmed or suspected to have Coronavirus / COVID-19? No / Unsure 11/15/2019 9:11 AM EDT documented as of this encounter Miscellaneous Notes * Telephone Encounter - Sandra Ojeda C.M.A. - 11/13/2019 4:52 PM EDT Requested [facility] notes for review. Pt scheduled for 11/15/2019 for ER f.u with fabi Pederson. FYI * Telephone Encounter - Fabi Pederson PA-C - 11/13/2019 4:42 PM EDT Pt needs a post ER follow up scheduled for tomorrow, we will determine then if she needs a repeat D-dimer. * Telephone Encounter - Sydney Riley - 11/13/2019 2:20 PM EDT Patient anxious to know if she needs to repeat labs * Telephone Encounter - Sydney Riley - 11/13/2019 8:31 AM EDT Caller requesting call back from provider: Diana Pederson Is the caller the patient? YES Reason for call back: Patient was sent to ER [facility] yesterday after bloodwork d-dimer was abnormally high. Hospital testing was below 200. Patient was instructed to have repeat test at MD office. Patient anxious to have testing done Caller offered to speak with the nurse for assistance: YES Response: Patient offered to speak with nurse for assistance and patient agreed. Message forwarded to nurse. documented in this encounter Plan of Treatment Not on file documented as of this encounter Visit Diagnoses Not on filedocumented in this encounter Care Teams Automotive Refinisher Relationship Specialty Start Date End Date Cecelia Patel MD PCP - General Internal Medicine 09/13/1601/19 Taylor Becerra MD [address] [place] [address] PCP - General Internal Medicine 01/20/22 documented as of this encounter
--- OUTSIDE RECORDS SUMMARY | 2024-12-20 07:30 | XMS_ITS | Patient Health Record ---
Author Organization [facility] Address [address] [place] [address] Care Team Providers Care Dining Server Name Role Phone Kacy Hansen Primary Care Provider Silvio White Unavailable [phone] Allergies Allergen (clinical drug ingredient) Drug/Non Drug [...] Date Coverage End Date Cigna [address] JAREK Garcia [phone] [id number] Alexus Pena Self - patient is the insured Medical (General) History Medical History History ICD Code Anxiety Hospitalization History Reason Date(Month/Year) C- dehydration 06/2022
--- OUTSIDE RECORDS SUMMARY | 2024-12-20 07:30 | XMS_ITS | Encounter Summary ---
Author Organization [facility] Address [address] [place] [address] Care Team Providers Care Roofing Sales Representative Name Role Phone Cecelia Patel MD Primary Care Provider Taylor Aburto MD Primary Care Prov ider Reason for Visit * Reason Onset Date Comments Appointment-Internal Referral 01/03/2018 Encounter Details Date Type Department Care Team Description 01/03/2018 Telephone Adult Medicine [address] [address] Joann Lezama PA-C [address] [place] [address] Appointment-Internal Referral Social History Tobacco Use Types Packs/Day Years [...] encounter Miscellaneous Notes * Telephone Encounter - Holley Dubon - 01/03/2018 10:05 AM EST We are unable to reach your patient to schedule their referral for the Construction Pit Worker Department. Numerous attempts have been made and a letter has been sent to the patient. The patient is being taken off the work que at this time. Thank you, OBGYN department documented in this encounter Plan of Treatment Not on file documented as of this encounter Visit Diagnoses Not on filedocumented in this encounter Care Teams Roofing Sales Representative Relationship Specialty Start Date End Date Cecelia Patel MD PCP - General Internal Medicine 09/13/1601/19 Krystal Young, Taylor Mondragon MD [address] [place] [address] PCP - General Internal Medicine 01/20/22 documented as of this encounter
--- OUTSIDE RECORDS SUMMARY | 2024-12-20 07:30 | XMS_ITS | Encounter Summary ---
Author Organization [facility] Address [address] [place] [address] Care Team Providers Care Tool Liaison Name Role Phone Cecelia Patel MD Primary Care Provider [facility] Elizabeth MD Primary Care Prov ider Encounter Details Date Type Department Care Team Description 11/01/2016 Release of Information Medical Records [address] [place] [address] Abstract, Provider Social History Tobacco Use Types Packs/Day Years Used Date Smoking Tobacco: Never Alcohol Use Standard Drinks/Week Comments [...] on filedocumented in this encounter Care Teams Tool Liaison Relationship Specialty Start Date End Date Cecelia Patel MD PCP - General Internal Medicine 09/13/1601/19 Taylor Becerra MD [address] [place] [address] PCP - General Internal Medicine 01/20/22 documented as of this encounter
--- OUTSIDE RECORDS SUMMARY | 2024-12-20 07:30 | XMS_ITS | Encounter Summary ---
Author Organization [facility] Address [address] [place] [address] Care Team Providers Care Manager Managing Name Role Phone Taylor Becerra MD Primary Care Prov ider Reason for Visit * Reason Comments E-prescribe Rx Request Encounter Details Date Type Department Care Team Description 10/31/2023 Refill OBGYN - [address] [address] [facility] [address] [place] [address] E-prescribe Rx Request Social History Tobacco Use [...] EDT WHEN WAS THE PATIENTS LAST ANNUAL EXHIBIT DISPLAY REPRESENTATIVE EXAM?09/05/23 Does patient have an upcoming appointment? [...] Payor: GORDO / Plan: PPO $0 KISHAN [id number] / Product Type: PPO [id number] documented in this encounter Plan of Treatment Not on file documented as of this encounter Visit Diagnoses Not on filedocumented in this encounter Care Teams Manager Managing Relationship Specialty Start Date End Date Taylor Becerra MD [address] [place] [address] PCP - General Internal Medicine 01/20/22 documented as of this encounter
[2024-12-20 08:47] LABS: Cholesterol 121 mg/dL (<200); HDL Cholesterol 52 mg/dL (>40); Triglycerides 178 mg/dL (<150)
== END 2024-12-20 07:28 | disposition home or self-care (01) ==
LOC: HO.LAB 07:27
PROVIDERS: PCP Internal Medicine
DX: E78.1 Pure hyperglyceridemia (principal)
CPT/HCPCS: 36415; 80061

== ENCOUNTER 2024-12-21 15:22 | Outpatient (AMB) | payer OTHER, SELFPAY ==
[2024-12-21 15:34] VITALS: BP 132/76; PULSE 95; TEMP 36.3; O2SAT 99; BMI 30.5
--- NOTE | 2024-12-21 15:34 | MHC.PC.OV ---
Vital Signs 12/21/24 15:34 Height 5 ft 8 in Weight 200 lb 8 oz BMI 30.5 BP 132/76 Blood Pressure Location Lt brachial Position Sitting Pulse 95 Pulse Source Pulse Oximeter Temp 97.3 F Temp Source Temporal Artery Scan Pulse Oximetry (%) 99 Oxygen Delivery Method Room Air Intake Visit Reasons: 3mth f/u Allergies No Known Allergies Allergy (Verified 12/21/24 15:37) Tobacco use date assessed: 12/21/24 Dental Screening Dental Screen Date: 12/21/24 Did you have a dental visit in the last 12 months?: Yes Did you have a dental problem in the last 6 months where you did not have access to dental care?: No Was dental information given to patient?: Patient has dentist [facility] Medical History Bacterial conjunctivitis Overweight (BMI 25.0-29.9) Vitamin D deficiency Surgical History No pertinent past surgical history Family History Father No problems noted. Mother Myocardial infarct Brother Autism Maternal Aunt Thyroid cancer Paternal Uncle Colon cancer Social History Housing: House Alcohol intake: current Comment: once a week 1 drink Patient Tobacco Use Status: Never used Tobacco Tobacco use type: Cigarette e-Cigarette/Vaping Use: Never Used Second Hand Smoke Exposure: No service: No Current occupational status: employed Cognitive needs: Yes Hearing needs: No Vision needs: No Questionnaire PHQ-9 Over the last 2 weeks, how often have you been bothered by any of the following problems? 1. Little interest or pleasure in doing things: several days 2. Feeling down, depressed, or hopeless: not at all 3. Trouble falling or staying asleep, or sleeping too much: not at all 4. Feeling tired or having little energy: several days 5. Poor appetite or overeating: not at all 6. Feeling bad about yourself - or that you are a failure or have let yourself or your family down: not at all 7. Trouble concentrating on things, such as reading the newspaper or watching television: not at all 8. Moving or speaking so slowly that other people could have noticed. Or the opposite - being so fidgety or restless that you have been moving around a lot more than usual: not at all 9. Thoughts that you would be better off or of hurting yourself in some way: not at all Total score: 2 Depression Screening Interpretation: Negative Depression Screening Done: Yes Source: Developed by Drs. Kashif Rao, Mandy Akins, Tyron Ludwig and colleagues, with an educational jevon from [employer]. Thrive Questionnaire Date Thrive assessed: 09/02/24 I am a: Patient What is your living situation today?: I have a steady place to live Within the past 12 months, did the food you bought not last and you didn't have the money to get more?: Never true Within the past 12 months, did you worry whether your food would run out before you got money to buy more?: Never true Do you have trouble paying for medicines?: No Do you have trouble getting transportation to medical appointments?: No Do you have trouble paying your heating and electricity bill?: No Do you have trouble taking care of your child, family member or friend?: No Do you have trouble with day-to-day activities such as bathing, preparing meals, shopping, managing finances, etc.?: No Are you currently unemployed and looking for a job?: No Are you interested in more education?: No Please select the resources that you would like help with: None Currently or been in a relationship where the following occur: No concerns reported THRIVE Score: 0 AUDIT C Alcohol Use Questionnaire (AUDIT-C) 1. How often do you have a drink containing alcohol?: Monthly or less 2. How many drinks containing alcohol do you have on a typical day when you are drinking?: 1 or 2 3. How often do you have six or more drinks on one occasion?: Never Total Score: 1 ODIN-7 AMB Questionnaire ODIN-7 Date ODIN - 7 assessed: 09/04/24 Feeling nervous, anxious, or on edge: 1 = Several days Not being able to stop or control worryin = Several days Worrying too much about different things: 0 = Not at all Trouble relaxin = Several days Being so restless that it is hard to sit still: 1 = Several days Becoming easily annoyed or irritable: 1 = Several days Feeling afraid as if something awful might happen: 0 = Not at all Total ODIN-7 score (0-4 normal; 5-9 mild; 10-14 moderate; 15-21 severe): 5 Source: Developed by Drs. Kashif Rao, Mandy Akins, Tyron Ludwig and colleagues, with an educational jevon from [employer]. Physical exam (Primary Care) Vital Signs: Last Vital Signs Temp 97.3 F 12/21/24 15:34 Pulse 95 12/21/24 15:34 BP 132/76 12/21/24 15:34 Pulse Ox 99 12/21/24 15:34 Oxygen Delivery Method Room Air 12/21/24 15:34 BMI result Body Mass Index 30.5 Tobacco/Smoking Status: Tobacco use Status Tobacco use date assessed 12/21/24 12/21/24 15:38 Patient Tobacco Use Status Never used Tobacco 12/21/24 15:38 Tobacco use type Cigarette 12/21/24 15:38 e-Cigarette/Vaping Use Never Used 12/21/24 15:38 PHQ-9: PHQ-9 Score PHQ-9: Total score 2 12/21/24 15:38 Depression Screening Interpretation: Negative Thrive Assessment: Date of Thrive Assessment Date Thrive assessed 09/02/24 12/21/24 15:38 Currently or been in a relationship where the following occur: No concerns reported Const General: alert; No acute distress Eyes Conjunctivae: conjunctivae normal Resp Auscultation: clear to auscultation bilaterally Cardio Rate: regular rate Rhythm: regular rhythm GI Inspection: Yes normal to inspection Extrem General: Yes normal to inspection and No edema Results AMB Hemoglobin A1c AMB Hemoglobin A1c 6.5 % Last Edit by Ella Cuellar CMA on 12/21/24 16:20 Coding Level of Care Code Est Pt Level 4 (12175) Complex EM visit Add On G2211 Diagnoses Impaired fasting glucose R73.01 Hypertriglyceridemia E78.1 Obesity (BMI 30.0-34.9) E66.9 Right carpal tunnel syndrome G56.01 Assessment & Plan Assessment & Plan (1) Impaired fasting glucose: Comment: with overweight Code(s): R73.01 - Impaired fasting glucose Category: Medical Plan: Decrease the amount of carbohydrate intake, pasta, bread, rice and potatoes are all sugar and that is aside from all the sweet stuff, remember that fruits are good but they are Sweet also. Discussed my concerns with the patient as the hemoglobin A1c testing done in the clinic is 6.5. Officially making her diabetic. Will do some confirmation and request for a hemoglobin A1c done in the lab. Will do the blood count as well as the fasting blood sugar. (2) Hypertriglyceridemia: Code(s): E78.1 - Pure hyperglyceridemia Category: Medical Plan: Avoid fried foods, chicken skin, eggs, butter margarine, pastries and meat. Be it pork or beef they have a lot of cholesterol LDL goal of less than 130 and triglyceride of less than 150. (3) Obesity (BMI 30.0-34.9): Code(s): E66.9 - Obesity, unspecified Category: Medical Plan: Diet and exercise (4) Right carpal tunnel syndrome: Comment: June [id number] right median neuropathy across carpal tunnel. 2. Right Vldaislav Chad anastomosis, a normal variant. Code(s): G56.01 - Carpal tunnel syndrome, right upper limb Category: Medical Plan: Known to have carpal tunnel syndrome and if getting worse will need to retest Plan History of Present Illness The patient is a 34-year-old female presenting for a follow-up visit. Her past medical history is significant for generalized anxiety disorder, exercise-induced bronchospasms, impaired glucose tolerance, and hypertriglyceridemia. She has been under the care of a stripping shovel operator/dietitian for her impaired glucose tolerance. Her last physical exam was in August, and lab work from that time showed a blood sugar of 116 mg/dL, a hemoglobin A1c of 5.9%, and triglycerides of 178 mg/dL. Her electrolytes and renal function were noted to be good. A complete blood count from May was normal. In October, the patient was seen at an urgent care center for bacterial conjunctivitis and was treated with Cipro eye drops. Health Maintenance - The patient has been following with a stripping shovel operator/dietitian for impaired glucose tolerance. - Discussed diet and exercise with a goal for LDL less than 130 and triglycerides less than 150. - Counseled on dietary changes to manage blood sugar, including reducing carbohydrates, sweets, candies, soda, and juices. Social History - Diet: Reports eating pasta and occasionally candies. Review of Systems Physical Exam - Point of Care Testing: Hemoglobin A1c by finger stick is 6.5. Results - Labs (August): Blood sugar 116 mg/dL, hemoglobin A1c 5.9%, triglycerides 178 mg/dL; electrolytes and renal function were good. - Labs (May): Complete blood count was normal. - [id number]-dj-[id number] Testing (Current Visit): Hemoglobin A1c of 6.5. Plan Patient was informed and verbally consented to the use of an ambient scribe for clinic note documentation during this visit. 1. Type 2 Diabetes Mellitus An in-office finger stick hemoglobin A1c was elevated at 6.5, which officially meets the criteria for a diabetes diagnosis, representing a progression from her previous A1c of 5.9. A confirmatory lab test will be ordered, including a hemoglobin A1c, fasting blood sugar, and complete blood count. Extensive dietary counseling was provided, emphasizing significant reduction of carbohydrates (pasta, bread, rice, potatoes), sweets, candies, soda, and juices. The patient is hesitant to start medication, and given her young age, the initial plan is to focus on lifestyle modification. The patient will be contacted with the lab results, and a follow-up is scheduled in approximately three months. 2. Hypertriglyceridemia The patient's triglycerides were 178 mg/dL in August, which is above the goal of less than 150 mg/dL. The plan includes reinforcement of diet and exercise, with the LDL goal set at less than 130 mg/dL. 3. Obesity The patient has a known diagnosis of obesity. A continued focus on diet and exercise is recommended. Discussion Notes I discussed my concerns with the patient regarding the in-office hemoglobin A1c test result of 6.5, explaining that this value officially meets the diagnostic criteria for diabetes. We will proceed with confirmatory lab testing, including a hemoglobin A1c, fasting blood sugar, and a complete blood count. I counseled her on the need to significantly reduce her intake of carbohydrates such as pasta, bread, rice, and potatoes, as well as sweets, candies, soda, and juices. Given her young age, I expressed a preference to avoid starting medication at this time and focus on these lifestyle changes first. We will call her with the lab results and she will follow up in about three months. Patient Instructions - Go to the lab to have blood work done. - Significantly reduce your intake of carbohydrates, such as pasta, bread, rice, and potatoes. - Avoid sweets, candies, sodas, and juices. - Eat whole fruits instead of drinking fruit juice, but do so in moderation. - We will call you with your lab results. - Schedule a follow-up appointment in about three months. Orders: Orders AMB Hemoglobin A1c Today Z13.9 - Encounter for screening, unspecified Hemoglobin A1c Today R73.01 - Impaired fasting glucose Comprehensive Met. Panel Today R73.01 - Impaired fasting glucose Complete Blood Count Auto Diff Today R73.01 - Impaired fasting glucose
--- OUTSIDE RECORDS SUMMARY | 2024-12-21 16:33 | XMS_ITS | Patient Health Record ---
Author Organization [facility] Address [address] [place] [address] Care Team Providers Care Service Line Coordinator Name Role Phone Kacy Hansen Primary Care Provider Silvio White Unavailable [phone] Allergies Allergen (clinical drug ingredient) Drug/Non Drug [...] Date Coverage End Date Cigna [address] JAREK Garcia [phone] [id number] Alexus Pena Self - patient is the insured Medical (General) History Medical History History ICD Code Anxiety Hospitalization History Reason Date(Month/Year) C- dehydration 06/2022
--- OUTSIDE RECORDS SUMMARY | 2024-12-21 16:33 | XMS_ITS | Encounter Summary ---
Author Organization [facility] Address [address] [place] [address] Care Team Providers Care Fishing Vessel Deckhand Name Role Phone Cecelia Patel MD Primary Care Provider Taylor Aburto MD Primary Care Prov ider Reason for Visit * Reason Onset Date Comments Appointment-Internal Referral 01/03/2018 Encounter Details Date Type Department Care Team Description 01/03/2018 Telephone Adult Medicine [address] [address] Joann Lezama PA-C [address] [place] [address] Appointment-Internal Referral Social History Tobacco Use Types [...] patient to schedule their referral for the Self Propelled Mining Machine Operator Department. Numerous attempts have been made and a letter has been sent to the patient. The patient is being taken off the work que at this time. Thank you, OBGYN department documented in this encounter Plan of Treatment Not on file documented as of this encounter Visit Diagnoses Not on filedocumented in this encounter Care Teams Fishing Vessel Deckhand Relationship Specialty Start Date End Date Cecelia Patel MD PCP - General Internal Medicine 09/13/1601/19 Krystal Young, Tyalor Mondragon MD [address] [place] [address] PCP - General Internal Medicine 01/20/22 documented as of this encounter
--- OUTSIDE RECORDS SUMMARY | 2024-12-21 16:33 | XMS_ITS | Encounter Summary ---
Author Organization [facility] Address [address] [place] [address] Care Team Providers Care Incubator Operator Name Role Phone Cecelia Patel MD Primary Care Provider U reeailTaylor Elizabeth MD Primary Care Prov ider Encounter Details Date Type Department Care Team Description 12/20/2017 Orders Only Adult Medicine - [address] [address] Cecelia Patel MD Vitamin D deficiency (Primary [...] deficiency documented in this encounter Care Teams Incubator Operator Relationship Specialty Start Date End Date Cecelia Patel MD PCP - General Internal Medicine 09/13/1601/19 Taylor Becerra MD [address] [place] [address] PCP - General Internal Medicine 01/20/22 documented as of this encounter
--- OUTSIDE RECORDS SUMMARY | 2024-12-21 16:33 | XMS_ITS | Encounter Summary ---
Author Organization [employer] [facility] Address [address] [place] [address] Care Team Providers Care Foam Gun Operator Name Role Phone Taylor Becerra MD Primary Care Prov ider Reason for Visit * Reason Comments E-prescribe Rx Request Encounter Details Date Type Department Care Team Description 10/31/2023 Refill OBGYN - [address] [address] [facility] [address] [place] [address] E-prescribe Rx Request Social History Tobacco Use [...] EDT WHEN WAS THE PATIENTS LAST ANNUAL LAB CLERK EXAM?09/05/23 Does patient have an upcoming appointment? [...] Payor: GORDO / Plan: PPO $0 KISHAN [id number] / Product Type: PPO [id number] documented in this encounter Plan of Treatment Not on file documented as of this encounter Visit Diagnoses Not on filedocumented in this encounter Care Teams Foam Gun Operator Relationship Specialty Start Date End Date Taylor Becerra MD [address] [place] [address] PCP - General Internal Medicine 01/20/22 documented as of this encounter
--- OUTSIDE RECORDS SUMMARY | 2024-12-21 16:33 | XMS_ITS | Encounter Summary ---
Author Organization [facility] Address [address] [place] [address] Care Team Providers Care Body And Fender Mechanic Apprentice Name Role Phone Cecelia Patel MD Primary Care Provider U [facility] Taylor Becerra MD Primary Care Prov ider Encounter Details Date Type Department Care Team Description 02/09/2018 Orders Only Medical Records [address] [place] [id number] Abstract, Provider Social History Tobacco Use Types [...] on filedocumented in this encounter Care Teams Body And Fender Mechanic Apprentice Relationship Specialty Start Date End Date Cecelia Patel MD PCP - General Internal Medicine 09/13/1601/19 Taylor Becerra MD [address] [place] [address] PCP - General Internal Medicine 01/20/22 documented as of this encounter
== END 2024-12-21 16:29 | disposition home or self-care (01) ==
LOC: HO.HMCH 15:23
PROVIDERS: PCP Internal Medicine; Visit Provider Internal Medicine
DX: R73.01 Impaired fasting glucose (principal); E78.1 Pure hyperglyceridemia; Z68.30 Body mass index [BMI] 30.0-30.9, adult; E66.9 Obesity, unspecified; G56.01 Carpal tunnel syndrome, right upper limb; Z13.9 Encounter for screening, unspecified

== ENCOUNTER → 2024-12-21 15:22 | Outpatient (BNVA) | payer OTHER, SELFPAY | PROVIDERS: PCP Internal Medicine; Visit Provider Internal Medicine | DX: E78.1 Pure hyperglyceridemia (principal); E66.9 Obesity, unspecified; G56.01 Carpal tunnel syndrome, right upper limb; E11.9 Type 2 diabetes mellitus without complications; Z68.30 Body mass index [BMI] 30.0-30.9, adult | CPT/HCPCS: 83036; 96127 ==

== ENCOUNTER 2024-12-24 07:39 | Outpatient (REF) | payer OTHER, SELFPAY ==
--- OUTSIDE RECORDS SUMMARY | 2024-12-24 07:42 | XMS_ITS | Patient Health Record ---
Author Organization [facility] Address [address] [place] [address] Care Team Providers Care Electrical Unit Rebuilder Name Role Phone Kacy Hansen Primary Care Provider Silvio White Unavailable [phone] Allergies Allergen (clinical drug ingredient) Drug/Non Drug [...] Date Coverage End Date Cigna [address] JAREK Garcia [phone] [id number] Alexus Pena Self - patient is the insured Medical (General) History Medical History History ICD Code Anxiety Hospitalization History Reason Date(Month/Year) C- dehydration 06/2022
[2024-12-24 07:53] LABS: MANUAL DIFF FLAG NO
[2024-12-24 08:28] LABS: Hematocrit 40.7 % (37.0-47.0); Hemoglobin 13.4 g/dl (12.0-16.0); Imm Gran Abs Auto 0.02 X10*3/uL (0.00-0.03); Imm Gran Pct Auto 0.3 % (0.0-0.4); Lymphocytes Absolute Auto 2.6 X10*3/uL (1.2-4.9); Mean Corpuscular HGB Conc 32.9 g/dl (31.0-35.0); Mean Corpuscular Hemoglobin 28.3 pg (27.0-33.0); Mean Corpuscular Volume 86.0 fL (80.0-98.0); NRBC Abs Auto 0.000 X10*3/uL (0.0-0.012); NRBC Pct Auto 0.0 /100WBC (0.0-0.2); Platelet Count 231 X10*3/uL (160-400); Red Blood Count 4.73 X10*6/uL (4.20-5.50); White Blood Count 7.6 X10*3/uL (4.8-10.8)
[2024-12-24 08:52] LABS: Alanine Aminotransferase 24 U/L (0-31); Albumin Level 4.0 g/dL (3.5-5.0); Alkaline Phosphatase 72 U/L (39-117); Anion Gap 13 (12-20); Aspartate Amino Transferase 36 U/L (5-31); Blood Urea Nitrogen 11 mg/dL (9-16); Calcium 9.1 mg/dL (8.4-10.2); Carbon Dioxide 19 mmol/L (22-29); Chloride 108 mmol/L (96-108); Estimated Glomerular Filt Rate > 60; Potassium 4.1 mmol/L (3.3-5.1); Sodium 136 mmol/L (135-145); Total Protein 7.4 g/dL (6.5-8.0)
== END 2024-12-24 07:40 | disposition home or self-care (01) ==
LOC: HO.LAB 07:39
PROVIDERS: PCP Internal Medicine; Visit Provider Internal Medicine
DX: R73.01 Impaired fasting glucose (principal)
CPT/HCPCS: 36415; 80053; 83036; 85025